=== PATIENT | female | born 1935 | race Caucasian/White ===

== ENCOUNTER 2017-08-02 17:14 | Inpatient (IN) | payer OTHER ==
[~2017-08-02] VITALS: Ht 167.6 cm; Wt 86.6 kg
[2017-08-02] MEDS ORDERED: LORAZEPAM0.5 MG ORAL (17:23)
[2017-08-02] MEDS ORDERED: LOSARTAN-HCTZ1 EAC2 ORAL (17:23)
[2017-08-02] MEDS ORDERED: LEXAPRO10 MG ORAL (17:23)
[2017-08-02] MEDS ORDERED: PRAVASTATIN SOD20 M1 ORAL (17:23)
[2017-08-02] MEDS ORDERED: VITAMIN D250000 UNI1 ORAL (17:23)
[2017-08-02] MEDS ORDERED: LEVOTHYROXINE50 MCG ORAL (17:23)
--- NOTE | 2017-08-02 17:32 | Emergency Room Report ---
History of Present Illness General Chief Complaint: Syncope Source: Patient, Medical Record Present Illness HPI 81-year-old female brought in from urgent care Center by EMS for suspected multiple syncope episodes hpi limited as patient has history of dementia Patient unsure why she is here States she feels fine She is aware that she passed out a couple times, denies any resulting trauma She is unsure if this is happening previously She doesn't know her medical problems however paperwork indicates history of high blood pressure Currently asymptomatic Allergies: Coded Allergies: LIDOCAINE (Verified Allergy, Unknown, 08/02/17) Patient History Past Medical History: HTN Past Surgical History: unable to obtain Pertinent Family History: unable to obtain Social History: Denies: smoking, alcohol use, drug use Now: No Immunizations: UTD Reviewed Nursing Documentation: PMH: Agreed; PSxH: Agreed Nursing Documentation-PMH Past Medical History: No History, Except For Hx Hypertension: Yes Hx Diabetes: Yes Review of Systems All Other Systems: negative except mentioned in HPI Physical Exam Vital Signs Date Time Temp Pulse Resp B/P (MAP) Pulse Ox O2 Delivery O2 Flow Rate FiO2 08/02/17 17:10 97.4 70 16 101/59 97 Room Air 97.3 Sp02 EP Interpretation: reviewed, normal General Appearance: normal inspection, well appearing, no apparent distress, alert, GCS 15, non-toxic Head: normocephalic, atraumatic Eyes: bilateral eye PERRL, bilateral eye EOMI ENT: normal ENT inspection, hearing grossly normal, normal pharynx, no angioedema, normal voice, TMs + canals normal, uvula midline, moist mucus membranes Neck: normal inspection, full range of motion, supple, thyroid normal, no meningismus, no bony tend Respiratory: normal inspection, lungs clear, normal breath sounds, no rhonchi, no respiratory distress, no retraction, no accessory muscle use, no wheezing, speaking full sentences Cardiovascular #1: regular rate, rhythm, no edema, no JVD, normal capillary refill Gastrointestinal: normal inspection, normal bowel sounds, non tender, soft, no mass, no peritonitis, non-distended, no guarding, no hernia, no pulsatile mass Genitourinary: no CVA tenderness Musculoskeletal: normal inspection, back normal, normal range of motion, no calf tenderness, pelvis stable, Dana's Sign negative Neurologic: normal inspection, alert, responsive, auto headlight mechanic III-XII nml as tested, motor strength/tone normal, cerebellar normal, normal gait, speech normal, other - A&OX2 Psychiatric: normal inspection, judgement/insight normal, mood/affect normal, no suicidal/homicidal ideation, no delusions Skin: normal inspection, normal color, no rash Lymphatic: normal inspection, no adenopathy Medical Decision Making Diagnostic Impression: Primary Impression: Syncope Qualified Codes: R55 - Syncope and collapse ER Course VSS, afebrile Alleged multiple episodes of syncope Unlikely PE given not tachycardic, not tachypnic, no S1Q3T3 or right heart strain on ECG, troponin WNL Labs: No acute abnormality Mild leuks, likely reactionary from syncopal episode, stress No cough or signs of PNA on CXR Abd soft, NT so unlikely acute bacterial infection Will need admission overnight for cardiac specialist, tele and serial trop Endorsed to panel, Dr Mabry Tele bed 645pm EKG Diagnostic Results Rate: normal Rhythm: NSR ST Segments: no acute changes ASA given to the pt in ED: No Rhythm Strip Diag. Results EP Interpretation: yes Rate: 76 Rhythm: NSR, no PVC's, no ectopy Chest X-Ray Diagnostic Results Chest X-Ray Diagnostic Results : Chest X-Ray Ordered: Yes # of Views/Limited/Complete: 1 View Indication: Other - Syncope EP Interpretation: Yes Interpretation: no consolidation, no effusion, no pneumothorax, no acute cardiopulmonary disease Impression: No acute disease Electronically Signed by: Dr Marv Mast MD Last Vital Signs Date Time Temp Pulse Resp B/P (MAP) Pulse Ox O2 Delivery O2 Flow Rate FiO2 08/02/17 17:10 97.4 70 16 101/59 97 Room Air 97.3 Status: improved Disposition: ADMITTED INPATIENT Condition: Serious MARV MAST M.D. Aug 02, 2017 17:32
[2017-08-02 18:00] VITALS: BP 138/100
[2017-08-02 18:20] LABS: BASOPHILS % (AUTO) 0.9 % (0.0-2.0); EOSINOPHILS % (AUTO) 1.4 % (0.0-3.0); HEMOGLOBIN 13.4 G/DL (12.0-16.0); LYMPHOCYTES % (AUTO) 14.2 % (20.0-45.0); MEAN CORPUSCULAR VOLUME 87 FL (80-99); MONOCYTES % (AUTO) 6.1 % (1.0-10.0); NEUTROPHILS % (AUTO) 77.3 % (45.0-75.0); PLATELET COUNT 211 K/UL (150-450); RED BLOOD COUNT 4.59 M/UL (4.20-5.40); RED CELL DISTRIBUTION WIDTH 13.9 % (11.6-14.8); WHITE BLOOD COUNT 12.3 K/UL (4.8-10.8)
[2017-08-02 18:25] LABS: ANION GAP 8 mmol/L (5-15); BLOOD UREA NITROGEN 18 mg/dL (7-18); CALCIUM 9.6 MG/DL (8.5-10.1); CARBON DIOXIDE 29 MMOL/L (21-32); CHLORIDE 99 MMOL/L (98-107); CREATININE 1.1 MG/DL (0.55-1.30); POTASSIUM 3.9 MMOL/L (3.5-5.1); SODIUM 136 MMOL/L (136-145)
[2017-08-02 18:39] LABS: ALANINE AMINOTRANSFERASE 19 U/L (12-78); ALBUMIN/GLOBULIN RATIO 0.6 (1.0-2.7); ALKALINE PHOSPHATASE 143 U/L (46-116); ASPARTATE AMINO TRANSFERASE 16 U/L (15-37); BILIRUBIN,TOTAL 0.7 MG/DL (0.2-1.0); CKMB < 0.5 NG/ML (0.0-3.6); CREATINE KINASE 77 U/L (26-308)
[2017-08-02 20:35] VITALS: BP 146/82
[2017-08-02] MEDS ORDERED: Acetaminophen 500mg (ES) tab ORAL PRN (21:30)
[2017-08-03] VITALS: BP 137/79
--- NOTE | 2017-08-03 00:45 | History and Physical Report ---
DATE OF ADMISSION: 08/02/2017 NOTE: VERY POOR AUDIO HISTORY OF PRESENT ILLNESS: The patient comes in with multiple syncopal episodes. The patient is seen as an unreliable historian. . No shortness of breath. Denies cough. The patient . The patient denies any chest . No fevers or chills. Denies shortness of breath. No cough. PAST MEDICAL HISTORY: Dementia and hypertension. ALLERGIES: To lidocaine. SOCIAL HISTORY: Denies smoking, alcohol, or illicit drugs. REVIEW OF SYSTEMS: She is a poor historian, cannot rely on her history. . No fevers or chills. Denies shortness of breath. No cough. PHYSICAL EXAMINATION: VITAL SIGNS: Temperature 97.4, pulse is 70, and blood pressure 101/59. HEENT: PERRLA. NECK: Supple. No lymphadenopathy. CHEST: Clear to auscultation. GASTROINTESTINAL: Soft, nontender, and nondistended. EXTREMITIES: A 1+ edema. NEUROLOGIC: Reflexes equal on both sides. Oriented to name only. LABORATORY DATA: WBC of 12.3, hemoglobin of 10.4, and platelets of 211. Sodium 137, potassium 3.9, BUN of 18, and creatinine 1.1, and glucose 144. normal. ASSESSMENT AND PLAN: 1. Syncopal episode. 2. History of hypertension and . I have asked Dr. West, Dr. Pulido, and Dr. Bustillo to see the patient for the above-mentioned diagnoses and treatment. Becky Celestin M.D. DR: QUINCY JOB#: [id number] CC:
[2017-08-03 03:45] VITALS: BP 154/94
[2017-08-03 08:00] VITALS: BP 134/53
--- NOTE | 2017-08-03 08:36 | Diagnostic Imaging Report ---
Indication: Shortness of breath Technique: One view of the chest Comparison: none Findings: Body habitus limits evaluation. There is a large retrocardiac hiatal hernia. The heart is upper limits of normal in size. Lungs and pleural spaces are clear. Impression: No definite acute process Hiatal hernia
[2017-08-03] MEDS: Hyzaar 12.5mg/50mg tab ORAL SCH (09:00)
[2017-08-03 11:41] VITALS: BP 146/75
--- NOTE | 2017-08-03 13:10 | Cardiac Electrophysiology PN ---
Subjective Subjective Cardiology dictated [id number] Objective Last 24 Hour Vital Signs Date Time Temp Pulse Resp B/P (MAP) Pulse Ox O2 Delivery O2 Flow Rate FiO2 08/03/17 12:00 72 08/03/17 11:41 97.9 71 18 146/75 95 Room Air 97.9 08/03/17 11:10 83 08/03/17 11:05 71 08/03/17 11:00 71 08/03/17 09:00 134/53 08/03/17 08:00 80 08/03/17 08:00 98.2 81 18 134/53 95 98.2 08/03/17 04:00 69 08/03/17 03:45 97.5 67 20 154/94 95 97.5 08/03/17 00:00 68 08/03/17 00:00 97.5 79 20 137/79 97 97.5 08/02/17 20:43 97.4 77 19 138/100 100 Room Air 97.3 08/02/17 20:35 97.0 79 20 146/82 97 97.0 08/02/17 18:00 77 19 138/100 100 Room Air 08/02/17 17:10 97.4 70 16 101/59 97 Room Air 97.3 Intake and Output 08/02/17 08/03/17 19:00 07:00 Intake Total 0 ml Balance 0 ml Intake Oral 0 ml # Voids 2 Laboratory Tests Test 08/02/17 17:43 White Blood Count 12.3 K/UL (4.8-10.8) H Red Blood Count 4.59 M/UL (4.20-5.40) Hemoglobin 13.4 G/DL (12.0-16.0) Hematocrit 40.0 % (37.0-47.0) Mean Corpuscular Volume 87 FL (80-99) Mean Corpuscular Hemoglobin 29.2 PG (27.0-31.0) Mean Corpuscular Hemoglobin Concent 33.6 G/DL (32.0-36.0) Red Cell Distribution Width 13.9 % (11.6-14.8) Platelet Count 211 K/UL (150-450) Mean Platelet Volume 6.3 FL (6.5-10.1) L Neutrophils (%) (Auto) 77.3 % (45.0-75.0) H Lymphocytes (%) (Auto) 14.2 % (20.0-45.0) L Monocytes (%) (Auto) 6.1 % (1.0-10.0) Eosinophils (%) (Auto) 1.4 % (0.0-3.0) Basophils (%) (Auto) 0.9 % (0.0-2.0) Sodium Level 136 MMOL/L (136-145) Potassium Level 3.9 MMOL/L (3.5-5.1) Chloride Level 99 MMOL/L (98-107) Carbon Dioxide Level 29 MMOL/L (21-32) Anion Gap 8 mmol/L (5-15) Blood Urea Nitrogen 18 mg/dL (7-18) Creatinine 1.1 MG/DL (0.55-1.30) Estimat Glomerular Filtration Rate mL/min (>60) Glucose Level 144 MG/DL (74-106) H Calcium Level 9.6 MG/DL (8.5-10.1) Total Bilirubin 0.7 MG/DL (0.2-1.0) Aspartate Amino Transf (AST/SGOT) 16 U/L (15-37) Alanine Aminotransferase (ALT/SGPT) 19 U/L (12-78) Alkaline Phosphatase 143 U/L (46-116) H Total Creatine Kinase 77 U/L (26-308) Creatine Kinase MB < 0.5 NG/ML (0.0-3.6) Creatine Kinase MB Relative Index 0.6 Troponin I 0.000 ng/mL (0.000-0.056) Pro-B-Type Natriuretic Peptide 66 pg/mL (0-125) Total Protein 7.7 G/DL (6.4-8.2) Albumin 3.0 G/DL (3.4-5.0) L Globulin 4.7 g/dL Albumin/Globulin Ratio 0.6 (1.0-2.7) L Bam Pulido MD Aug 03, 2017 13:10
--- NOTE | 2017-08-03 15:51 | Cardiology Report ---
APPROVED REPORT EXAM: Two-dimensional and M-mode echocardiogram with Doppler and color Doppler. INDICATION Syncope M-Mode DIMENSIONS IVSd1.5 (0.7-1.1cm)Left Atrium (MM)2.5 (1.6-4.0cm) LVDd4.6 (3.5-5.6cm)Aortic Root2.3 (2.0-3.7cm) PWd1.5 (0.7-1.1cm)Aortic Cusp Exc.1.7 (1.5-2.0cm) IVSs2.1 cm LVDs3.0 (2.5-4.0cm) PWs1.8 cm Technically difficult study due to poor acoustical windows. Normal left ventricular chamber size, systolic function and wall motion to extent visualized. Left ventricular ejection fraction estimated to be 60 %. No evidence of left ventricular hypertrophy . Noevidence of pericardial effusion. All other cardiac chamber sizes are within normal limits. Focal aortic valve sclerosis with adequate cusp excursion. Moderately Thickened mitral valve leaflets with normal excursion. Moderately Mitral annulus and aortic root calcification. pulmonic valve structure not well visualized . Normal tricuspid valve structure. IVC at normal size with physiologic collapse. A color flow and spectral Doppler study was performed and revealed: No aortic regurgitation. Mild mitral regurgitation. Mitral diastolic velocities suggest reduced left ventricular relaxation c/w mild LV diastolic dysfunction (Grade I ). Trace tricuspid regurgitation. Tricuspid systolic velocities suggests peak right ventricular systolic pressure of 18 mmHg,
[2017-08-03 15:53] VITALS: BP 139/81
--- NOTE | 2017-08-03 16:48 | Cardiology Report ---
APPROVED REPORT EKG Measurement Heart [id number] Normal sinus rhythm Normal ECG
--- NOTE | 2017-08-03 19:00 | Consultation ---
DATE OF CONSULTATION: 08/03/2017 CARDIOLOGY CONSULTATION CONSULTING PHYSICIAN: Bam Pulido M.D. REFERRING PHYSICIAN: Becky Celestin M.D. REASON FOR CONSULTATION: Syncope. HISTORY OF PRESENT ILLNESS: The patient is an 81-year-old lady with history of hypertension, who was brought in from urgent care for multiple syncopal episodes. The patient has history of dementia and is unable to provide any detailed information. She, however, states that she passed out couple of times, but denies any trauma. The patient was admitted and a Cardiology consultation was obtained for further evaluation and management. PAST MEDICAL HISTORY: 1. Hypertension. 2. Diabetes. 3. Dementia. FAMILY HISTORY: Noncontributory. REVIEW OF SYSTEMS: Negative other than what was mentioned in the history of present illness. PHYSICAL EXAMINATION: VITAL SIGNS: Show blood pressure of 146/75, pulse 71, respirations 18, and temperature 97.9. HEAD AND NECK: Showed no JVD or carotid bruits. LUNGS: Clear. CARDIOVASCULAR: Shows regular S1 and S2 with no gallop or murmur. ABDOMEN: Soft and nontender. EXTREMITIES: No pitting edema. LABORATORY DATA: Her labs show white count of 4.3, hemoglobin 13.4, hematocrit of 40, and platelet count is 211,000. Sodium is 136, potassium 3.9, BUN of 18, creatinine 1.1, and glucose of 144. Troponin is negative. Her telemetry strip shows sinus rhythm. ASSESSMENT AND PLAN: 1. Recurrent syncopal episodes. No arrhythmia on telemetry so far. We will get an echocardiogram and carotid duplex and check orthostatic vital signs. 2. Hypertension. She is on high Hyzaar 50/12.5 mg daily. 3. Hyperlipidemia. On Pravachol. 4. Hypothyroidism. On Synthroid. Thank you very much, Dr. Celestin, for allowing me to participate in the care of this patient. Please do not hesitate to contact me for any questions regarding my evaluation. Bam Pulido M.D. DR: KATHLEEN JOB#: [id number] CC:
[2017-08-03 20:00] VITALS: BP 120/61
--- NOTE | 2017-08-03 21:21 | General Progress Note ---
Assessment/Plan Problem List: (1) Syncope ICD Codes: R55 - Syncope and collapse SNOMED: [id number] Qualifiers: Qualified Codes: R55 - Syncope and collapse Status: progressing Assessment/Plan cant remember what happened ot to name only obesity syncope reviewed chart and labs Subjective ROS Limited/Unobtainable: Yes Constitutional: Reports: no symptoms Allergies: Coded Allergies: LIDOCAINE (Verified Allergy, Unknown, 08/02/17) Objective Last 24 Hour Vital Signs Date Time Temp Pulse Resp B/P (MAP) Pulse Ox O2 Delivery O2 Flow Rate FiO2 08/03/17 20:00 98.0 82 18 120/61 96 Room Air 98.0 08/03/17 16:00 75 08/03/17 15:53 97.5 73 19 139/81 96 Room Air 97.5 08/03/17 12:00 72 08/03/17 11:41 97.9 71 18 146/75 95 Room Air 97.9 08/03/17 11:10 83 08/03/17 11:05 71 08/03/17 11:00 71 08/03/17 09:00 134/53 08/03/17 08:00 80 08/03/17 08:00 98.2 81 18 134/53 95 98.2 08/03/17 04:00 69 08/03/17 03:45 97.5 67 20 154/94 95 97.5 08/03/17 00:00 68 08/03/17 00:00 97.5 79 20 137/79 97 97.5 Intake and Output 08/02/17 08/03/17 19:00 07:00 Intake Total 0 ml Balance 0 ml Intake Oral 0 ml # Voids 2 Height (Feet): 5 Height (Inches): 6.00 Weight (Pounds): 191 Neck: supple Cardiovascular: normal rate Respiratory/Chest: lungs clear Becky Celestin MD Aug 03, 2017 21:21
--- NOTE | 2017-08-03 21:37 | Consultation ---
Consult Note Consult Note NEUROLOGY CONSULTATION: Full note dictated #[id number] 81 y/o, RH, CF with PH of hypothyroidism, HTN, DM and dementia. She was hospitalized for episodes of LOC. She cannot elaborate on them. ON EXAM: Global cognitive dysfunction. Globally diminished DTR. LABS with WBC 12.3 and BS 144. IMPRESSION: Syncopal episodes in patient with HTN, DM and Dementia. REC: W/U for syncope with labs. Cardiac W/U as per Dr. Pulido Observe If not done in past w/u dementia. Nicki Melendez M.D., M.S.P.H. NICKI MELENDEZ Aug 03, 2017 21:37
--- NOTE | 2017-08-03 23:30 | Consultation ---
DATE OF CONSULTATION: 08/03/2017 NEUROLOGY CONSULTATION CONSULTING PHYSICIAN: Vitaliy Olvera M.D. REQUESTING PHYSICIAN: Becky Celestin M.D. HISTORY: Ms. Erin Vicente is an 81-year-old, right-handed, lady, who has a long history of hypothyroidism, hypertension, diabetes mellitus, and dementia. She was apparently having multiple episodes of loss of consciousness and as a result of that was taken to an urgent care center from where she was brought into the [facility] emergency room. Since she has been in the emergency room, she has had no further episodes of loss of consciousness. She herself is quite demented and cannot remember any details of the episodes of loss of consciousness. She cannot tell me if she had any prodromal symptoms prior to the episodes and can give me no description of the episodes. PAST MEDICAL HISTORY: Significant for hypothyroidism, hypertension, diabetes mellitus, and dementia. FAMILY HISTORY: Unavailable. PERSONAL HISTORY: Home: She lives alone with some caregivers. Work: She is unable to remember what kind work she did. Habits: She denies use of alcohol, tobacco, or illicit drugs. MEDICATIONS: Present medications include pravastatin, Hyzaar, Synthroid and Tylenol. PHYSICAL EXAMINATION: GENERAL: She is a well-developed and well-nourished, pleasant lady, lying in bed, in no acute distress, smelling of urine. VITAL SIGNS: Pulse 82 per minute, blood pressure 120/61 mmHg, respirations 18 per minute, and temperature 98 degrees Fahrenheit. HEAD: Normocephalic and atraumatic. EENT: Examination benign. NECK: No neck rigidity was observed. NEUROLOGIC EXAMINATION: MENTAL STATUS EXAMINATION: She was awake and alert. She was oriented to self only. She had no idea where she was or what the date was. She was able to recall 3/3 words immediately, but could not remember any of them in 1 minute and 3 minutes even on the third trial. She was unable to tell me who the present President was and who prior presidents were. Her mathematical skills were impaired. Her visuospatial function was also impaired. SPEECH: She had no dysarthria. LANGUAGE: She had anomia for low and mid frequency words. CRANIAL NERVE EXAMINATION: II: The visual allen were intact to confrontation testing. III, IV & : The external ocular movements were full and the pupils 3 mm in diameter, equal, round, regular, and reactive to light. V: She had normal facial sensations and the temporales, masseters, and pterygoids functioned normally. VII: She had normal facial expressions and no facial asymmetry. VIII: She was able to hear well bilaterally and had no nystagmus. IX: The palate moved symmetrically on phonation. X: She had no hoarseness of voice. XI: The sternocleidomastoids and trapezii functioned normally. XII: The tongue was in the midline without any fasciculations or atrophy. MOTOR SYSTEM: The tone was normal in all four extremities. Examination of muscle mass revealed no focal wasting. Examination of power revealed grade 5/5 power in all muscle groups tested. SENSORY EXAMINATION: She had intact sensations to pinprick and light touch. Position sense was diminished in the toes bilaterally, but was normal in the fingers bilaterally. COORDINATION: She performed well on [id number] and [id number] testing. Romberg test could not be performed because even with eyes open when she was made to stand with feet together, she was quite unsteady. REFLEXES: Trace+ and bilaterally symmetrical at the biceps, triceps, brachioradialis, and knees, 0 at both ankles. The plantar responses were flexor bilaterally. STANCE: She had a minimally wide-based, but stable stance. GAIT: She walked with a minimally wide-based, but stable gait. DIAGNOSTIC IMPRESSION: 1. Ms. Erin Vicente is an 81-year-old, right-handed, lady, who does have a past history of hypothyroidism, hypertension, diabetes mellitus, and dementia, who was hospitalized for multiple episodes of loss of consciousness, thought to be syncopal episodes. She herself cannot elaborate on them because of her significant cognitive dysfunction. 2. On neurological examination, at this time, she does have problems with orientation, recent and remote memory, visuospatial function, higher cognitive function, and language. She also has globally diminished deep tendon reflexes, decreased position sense in the toes bilaterally, a wide-based stance and a wide-based gait. 3. Laboratory data obtained thus far revealed that her WBC count is elevated to 12,300 and a blood sugar is elevated to 144. 4. The patient's history and neurological examination are most compatible with syncopal episodes in a patient with significant dementia making it impossible to obtain a good history. She also has a prior history of hypothyroidism, hypertension and diabetes mellitus. RECOMMENDATIONS: 1. The patient should be worked up thoroughly for treatable causes of syncope with in addition to the laboratory tests already done, a B12 level, folate level, vitamin D level, RPR, glycohemoglobin, Westergren sedimentation rate, TSH, and serum protein immunoelectrophoresis. 2. Cardiac workup as per Dr. Pulido. 3. If not done in the past, she should be worked up thoroughly for treatable causes of dementia. 4. The patient should be observed with cardiac monitoring and depending on how she fares over the next day or so, further recommendations will be given. Thank you for entrusting me with the care of Ms. Vicente. I shall follow her with you. Vitaliy Olvera M.D., M.S.P.H. DR: FABI JOB#: [id number]
[2017-08-04] VITALS (7 sets, daily range): BP systolic 102–162; BP diastolic 60–89
[2017-08-04] MEDS: Hyzaar 12.5mg/50mg tab ORAL SCH (08:55)
[2017-08-04 11:00] LABS: CHOLESTEROL 370 MG/DL (< 200); HDL CHOLESTEROL 36 MG/DL (40-60); TRIGLYCERIDES 434 MG/DL (30-150)
--- NOTE | 2017-08-04 14:57 | Cardiac Electrophysiology PN ---
Assessment/Plan Assessment/Plan 1. Recurrent syncopal episodes. No arrhythmia on telemetry. Echo EF 60%. Neuro eval in progress 2. Hypertension. On Hyzaar 50/12.5 mg daily. 3. Hyperlipidemia. On Pravachol. 4. Hypothyroidism. On Synthroid. NICOLE RN Subjective Subjective Comfortable in NAD. No events. Objective Last 24 Hour Vital Signs Date Time Temp Pulse Resp B/P (MAP) Pulse Ox O2 Delivery O2 Flow Rate FiO2 08/04/17 12:41 97.7 70 18 139/60 95 Room Air 97.7 08/04/17 11:39 72 08/04/17 10:40 68 08/04/17 10:35 68 08/04/17 10:30 79 08/04/17 08:55 132/84 08/04/17 08:54 97.3 78 18 132/84 95 Room Air 97.3 08/04/17 07:47 76 08/04/17 04:00 65 08/04/17 04:00 97.7 63 18 133/64 95 Room Air 97.7 08/04/17 00:53 97.6 73 18 115/69 95 Room Air 97.6 08/04/17 00:00 70 08/03/17 23:10 88 08/03/17 23:05 80 08/03/17 23:00 67 08/03/17 20:00 84 08/03/17 20:00 98.0 82 18 120/61 96 Room Air 98.0 08/03/17 16:00 75 08/03/17 15:53 97.5 73 19 139/81 96 Room Air 97.5 Intake and Output 08/03/17 08/04/17 19:00 07:00 Intake Total 360 ml Balance 360 ml Intake Oral 360 ml # Voids 3 Laboratory Tests Test 08/04/17 09:50 Erythrocyte Sedimentation Rate 53 MM/HR (0-30) H Hemoglobin A1c 5.7 % (4.3-6.0) Troponin I 0.000 ng/mL (0.000-0.056) Pro-B-Type Natriuretic Peptide 17 pg/mL (0-125) Total Protein (PEP) Pending Albumin (PEP) Pending Globulin (PEP) Pending Albumin/Globulin Ratio Pending [id number] Pending Jhouo-2-Uboebusth Pending Beta Globulins Pending Beta Gamma Globulin Pending PEP Abnormal Protein Bands Pending Protein Electrophoresis Interpret Pending Triglycerides Level 434 MG/DL (30-150) H Cholesterol Level 370 MG/DL (< 200) H LDL Cholesterol 158 mg/dL (<100) H HDL Cholesterol 36 MG/DL (40-60) L Cholesterol/HDL Ratio 10.3 (3.3-4.4) H Vitamin B12 Level 295 PG/ML (193-986) Vitamin D 25-Hydroxy Pending 25-Hydroxy Vitamin D2 Pending 25-Hydroxy Vitamin D3 Pending Folate 10.5 NG/ML (8.6-58.9) Thyroid Stimulating Hormone (TSH) 1.317 uiU/mL (0.358-3.740) Rapid Plasma Reagin Pending Objective HEAD AND NECK: No JVD or carotid bruits. LUNGS: Clear. CARDIOVASCULAR: Regular S1 and S2 with no gallop or murmur. ABDOMEN: Soft and nontender. EXTREMITIES: No pitting edema. Bam Pulido MD Aug 04, 2017 14:57
[2017-08-04 16:55] LABS: APPEARANCE,URINE CLEAR; BILIRUBIN, URINE NEGATIVE (NEGATIVE); GLUCOSE, URINE (UA) NEGATIVE (NEGATIVE); KETONES,URINE NEGATIVE (NEGATIVE); LEUKOCYTE ESTERASE ,URINE 1+ (NEGATIVE); NITRITE,URINE POSITIVE (NEGATIVE); PH,URINE 5 (4.5-8.0); PROTEIN,URINE NEGATIVE (NEGATIVE); UROBILINOGEN,URINE NORMAL MG/DL (0.0-1.0)
[2017-08-04 16:56] LABS: COLOR,URINE YELLOW
[2017-08-04] MEDS ORDERED: Acetaminophen 500mg (ES) tab ORAL PRN (17:30)
--- NOTE | 2017-08-04 20:35 | Neurology Progress Note ---
Interim History Interim History Interim History Ms. Vicente feels well. Her sister is visiting her. She continues to have severe cognitive dysfunction. She continues to have no memory. She denies any new problems. Review of Systems Neuro Review of Systems Benign. Objective Physical Exam Last Vital Signs Date Time Temp Pulse Resp B/P (MAP) Pulse Ox O2 Delivery O2 Flow Rate FiO2 08/04/17 17:20 98.3 70 17 162/79 98 Room Air 98.3 Laboratory Tests Test 08/04/17 09:50 08/04/17 16:00 Erythrocyte Sedimentation Rate 53 MM/HR (0-30) H Hemoglobin A1c 5.7 % (4.3-6.0) Troponin I 0.000 ng/mL (0.000-0.056) Pro-B-Type Natriuretic Peptide 17 pg/mL (0-125) Total Protein (PEP) Pending Albumin (PEP) Pending Globulin (PEP) Pending Albumin/Globulin Ratio Pending [id number] Pending [id number] Pending Beta Globulins Pending Beta Gamma Globulin Pending PEP Abnormal Protein Bands Pending Protein Electrophoresis Interpret Pending Triglycerides Level 434 MG/DL (30-150) H Cholesterol Level 370 MG/DL (< 200) H LDL Cholesterol 158 mg/dL (<100) H HDL Cholesterol 36 MG/DL (40-60) L Cholesterol/HDL Ratio 10.3 (3.3-4.4) H Vitamin B12 Level 295 PG/ML (193-986) Vitamin D 25-Hydroxy Pending 25-Hydroxy Vitamin D2 Pending 25-Hydroxy Vitamin D3 Pending Folate 10.5 NG/ML (8.6-58.9) Thyroid Stimulating Hormone (TSH) 1.317 uiU/mL (0.358-3.740) Rapid Plasma Reagin Pending Urine Color Yellow Urine Appearance Clear Urine pH 5 (4.5-8.0) Urine Specific [place] 1.020 (1.005-1.035) Urine Protein Negative (NEGATIVE) Urine Glucose (UA) Negative (NEGATIVE) Urine Ketones Negative (NEGATIVE) Urine Occult Blood 3+ (NEGATIVE) H Urine Nitrite Positive (NEGATIVE) H Urine Bilirubin Negative (NEGATIVE) Urine Urobilinogen Normal MG/DL (0.0-1.0) Urine Leukocyte Esterase 1+ (NEGATIVE) H Urine RBC 0-2 /HPF (0 - 2) Urine WBC 2-4 /HPF (0 - 2) Urine Squamous Epithelial Cells Occasional /LPF Urine Bacteria Many /HPF (NONE) H Neurologic Exam Objective PHYSICAL EXAMINATION: GENERAL: She is a well-developed and well-nourished, pleasant lady, sitting up in a chair, in no acute distress, smelling of urine. HEAD: Normocephalic and atraumatic. EENT: Examination benign. NECK: No neck rigidity was observed. NEUROLOGIC EXAMINATION: MENTAL STATUS EXAMINATION: She was awake and alert. She was oriented to self only. She had no idea where she was or what the date was. She was able to recall 3/3 words immediately, but could not remember any of them in 1 minute and 3 minutes. She was unable to tell me who the present President was and who prior presidents were. Her mathematical skills were impaired. Her visuospatial function was also impaired. SPEECH: She had no dysarthria. LANGUAGE: She had anomia for low and mid frequency words. CRANIAL NERVE EXAMINATION: II: The visual allen were intact to confrontation testing. III, IV & : The external ocular movements were full and the pupils 3 mm in diameter, equal, round, regular, and reactive to light. V: She had normal facial sensations and the temporales, masseters, and pterygoids functioned normally. VII: She had normal facial expressions and no facial asymmetry. VIII: She was able to hear well bilaterally and had no nystagmus. IX: The palate moved symmetrically on phonation. X: She had no hoarseness of voice. XI: The sternocleidomastoids and trapezii functioned normally. XII: The tongue was in the midline without any fasciculations or atrophy. MOTOR SYSTEM: The tone was normal in all four extremities. Examination of muscle mass revealed no focal wasting. Examination of power revealed grade 5/5 power in all muscle groups tested. SENSORY EXAMINATION: She had intact sensations to pinprick and light touch. Position sense was diminished in the toes bilaterally, but was normal in the fingers bilaterally. COORDINATION: She performed well on qurlek-uc-ebor and sotl-nc-zksc testing. Romberg test could not be performed because even with eyes open when she was made to stand with feet together, she was quite unsteady. REFLEXES: Trace+ and bilaterally symmetrical at the biceps, triceps, brachioradialis, and knees, 0 at both ankles. The plantar responses were flexor bilaterally. STANCE: She had a minimally wide-based, but stable stance. GAIT: She walked with a minimally wide-based, but stable gait. Impression/Recommendations Diagnostic Impression 1. Ms. Erin Vicente is an 81-year-old, right-handed, lady, who does have a past history of hypothyroidism, hypertension, diabetes mellitus, and dementia, who was hospitalized for multiple episodes of loss of consciousness, thought to be syncopal episodes. She herself cannot elaborate on them because of her significant cognitive dysfunction. 2. She feels well. Her sister is visiting her. She continues to have severe cognitive dysfunction. She continues to have no memory. She denies any new problems. 3. On neurological examination, at this time, she does have problems with orientation, recent and remote memory, visuospatial function, higher cognitive function, and language. She also has globally diminished deep tendon reflexes, decreased position sense in the toes bilaterally, a wide-based stance and a wide-based gait. 4. Laboratory data obtained thus far revealed that her WBC count is elevated to 12,300 and a blood sugar is elevated to 144. In addition she is Vitamin B12 deficient with a level of 295. She also has a mild UTI. 5. The patient's history and neurological examination are most compatible with recent syncopal episodes. 6. She has also had a dementia for a few years now and the problem has worsened significantly as per her sister. Her dementia is most probably due to Alzheimer' s Disease. Recommendations 1. Await laboratory tests for dementia work up. 2. Cardiac workup as per Dr. Pulido. 3. Vitamin B12 - 1000 mcg SC daily x 3 and then monthly. Nicki Melendez M.D., M.S.P.Azeb. NICKI MELENDEZ Aug 04, 2017 20:35
[2017-08-04] MEDS: Vitamin B12 1000mcg/ml Inj SUBQ SCH (21:33)
--- NOTE | 2017-08-04 22:00 | General Progress Note ---
Assessment/Plan Problem List: (1) Syncope ICD Codes: R55 - Syncope and collapse SNOMED: [id number] Qualifiers: Qualified Codes: R55 - Syncope and collapse Status: progressing Assessment/Plan dementia no arrythmia no pain no fever syncope reviewed chart and labs Subjective ROS Limited/Unobtainable: Yes Constitutional: Reports: no symptoms Allergies: Coded Allergies: LIDOCAINE (Verified Allergy, Unknown, 08/02/17) Objective Last 24 Hour Vital Signs Date Time Temp Pulse Resp B/P (MAP) Pulse Ox O2 Delivery O2 Flow Rate FiO2 08/04/17 20:00 97.7 73 15 102/74 93 97.7 08/04/17 20:00 96.3 72 14 147/89 99 96.3 08/04/17 17:20 98.3 70 17 162/79 98 Room Air 98.3 08/04/17 16:57 97.7 85 18 125/73 95 Room Air 97.7 08/04/17 12:41 97.7 70 18 139/60 95 Room Air 97.7 08/04/17 11:39 72 08/04/17 10:40 68 08/04/17 10:35 68 08/04/17 10:30 79 08/04/17 08:55 132/84 08/04/17 08:54 97.3 78 18 132/84 95 Room Air 97.3 08/04/17 07:47 76 08/04/17 04:00 65 08/04/17 04:00 97.7 63 18 133/64 95 Room Air 97.7 08/04/17 00:53 97.6 73 18 115/69 95 Room Air 97.6 08/04/17 00:00 70 08/03/17 23:10 88 08/03/17 23:05 80 08/03/17 23:00 67 Intake and Output 08/03/17 08/04/17 19:00 07:00 Intake Total 360 ml Balance 360 ml Intake Oral 360 ml # Voids 3 Laboratory Tests 08/04/17 09:50: Erythrocyte Sedimentation Rate 53H, Hemoglobin A1c 5.7, Troponin I 0.000, Pro-B- Type Natriuretic Peptide 17, Total Protein (PEP) [Pending], Albumin (PEP) [ Pending], Globulin (PEP) [Pending], Albumin/Globulin Ratio [Pending], Alpha-1- Globulins [Pending], Ykhrn-8-Ioxmwydty [Pending], Beta Globulins [Pending], Beta Gamma Globulin [Pending], PEP Abnormal Protein Bands [Pending], Protein Electrophoresis Interpret [Pending], Triglycerides Level 434H, Cholesterol Level 370H, LDL Cholesterol 158H, HDL Cholesterol 36L, Cholesterol/HDL Ratio 10.3H, Vitamin B12 Level 295, Vitamin D 25-Hydroxy [Pending], 25-Hydroxy Vitamin D2 [Pending], 25-Hydroxy Vitamin D3 [Pending], Folate 10.5, Thyroid Stimulating Hormone (TSH) 1.317, Rapid Plasma Reagin [Pending] 08/04/17 16:00: Urine Color Yellow, Urine Appearance Clear, Urine pH 5, Urine Specific [place] 1.020, Urine Protein Negative, Urine Glucose (UA) Negative, Urine Ketones Negative, Urine Occult Blood 3+H, Urine Nitrite PositiveH, Urine Bilirubin Negative, Urine Urobilinogen Normal, Urine Leukocyte Esterase 1+H, Urine RBC 0-2 , Urine WBC 2-4, Urine Squamous Epithelial Cells Occasional, Urine Bacteria ManyH Height (Feet): 5 Height (Inches): 6.00 Weight (Pounds): 191 General Appearance: confused Cardiovascular: normal rate Respiratory/Chest: lungs clear Abdomen: soft Becky Celestin MD Aug 04, 2017 22:00
[2017-08-05] VITALS (7 sets, daily range): BP systolic 112–134; BP diastolic 48–95
--- NOTE | 2017-08-05 00:04 | Diagnostic Imaging Report ---
APPROVED REPORT CPT Code: 32525 Vascular Symptoms Syncope CAROTID (BILATERAL) - Imaging reveals no significant plaque within the right and left extracranial carotid arteries. The Doppler spectral flow analysis is within normal limits throughout the extracranial carotid arteries bilaterally. VERTEBRAL- The vertebral arteries are within normal limits.
[2017-08-05] MEDS: Hyzaar 12.5mg/50mg tab ORAL SCH (09:22)
--- NOTE | 2017-08-05 11:01 | Physician Query ---
--------- THIS DOCUMENT IS A PERMANENT PART OF THE MEDICAL RECORD --------- PLEASE COMPLETE THE DOCUMENT BEFORE SIGNING Dear WILLIS Lucio Date: 08/05/17 Migration Agent/CDS Name: Fabrice Orozco Migration Agent / CDS Phone #[phone] Exercise your independent professional judgment when responding to query. Question asked do not imply a particular answer is desired/expected Clinical Documentation States: "Syncope" documented in: H & P (08/04/17) "Syncopal episode" Cardiology Progress Note: Dr. Ozuna (08/04/17)= Recurrent syncopal episodes. Hyperlipidemia. Hypothyroidism.No arrhythmia on telemetry. Echo EF 60%. Neurology Progress Note: (08/04/17)= " Ms. Erin Vicente is an 81-year- old, right-handed, lady, who does have a past history of hypothyroidism, hypertension, diabetes mellitus, and dementia, who was hospitalized for multiple episodes of loss of consciousness, thought to be syncopal episodes." Temperature 97.4, pulse is 70, and blood pressure 101/59. Please specify the cause: [] Autonomic Imbalance [] Orthostatic Hypotension [] Psychogenic [] Shock [] Dehydration [] Dialysis Disequilibrium Syndrome [] Heat [] Other: [] Unable to determine Condition Present on Admission: [] Yes [] No [] Clinically Undeterminable Please also document in your Progress Notes and/or Discharge Summary and indicate if the condition was present on admission. Dr. WILLIS DAY Date/Time [facility]
--- NOTE | 2017-08-05 12:22 | Neurology Progress Note ---
Interim History Interim History Interim History Ms. Vicente feels well. She says she slept well last night. She has a good appetite and enjoyed her lunch today. She continues to have severe cognitive dysfunction. She continues to have no memory. She has had no further episodes of loss of consciousness. She denies any new problems. Review of Systems Neuro Review of Systems Benign. Objective Physical Exam Last Vital Signs Date Time Temp Pulse Resp B/P (MAP) Pulse Ox O2 Delivery O2 Flow Rate FiO2 08/05/17 09:22 134/68 08/05/17 08:00 80 08/05/17 08:00 97.4 20 94 Room Air 97.4 Laboratory Tests Test 08/04/17 16:00 Urine Color Yellow Urine Appearance Clear Urine pH 5 (4.5-8.0) Urine Specific [place] 1.020 (1.005-1.035) Urine Protein Negative (NEGATIVE) Urine Glucose (UA) Negative (NEGATIVE) Urine Ketones Negative (NEGATIVE) Urine Occult Blood 3+ (NEGATIVE) H Urine Nitrite Positive (NEGATIVE) H Urine Bilirubin Negative (NEGATIVE) Urine Urobilinogen Normal MG/DL (0.0-1.0) Urine Leukocyte Esterase 1+ (NEGATIVE) H Urine RBC 0-2 /HPF (0 - 2) Urine WBC 2-4 /HPF (0 - 2) Urine Squamous Epithelial Cells Occasional /LPF Urine Bacteria Many /HPF (NONE) H Neurologic Exam Objective PHYSICAL EXAMINATION: GENERAL: She is a well-developed, well-nourished, pleasant lady, sitting up in bed, in no acute distress, enjoying her lunch. HEAD: Normocephalic and atraumatic. EENT: Examination benign. NECK: No neck rigidity was observed. NEUROLOGIC EXAMINATION: MENTAL STATUS EXAMINATION: She was awake and alert. She was oriented to self only. She had no idea where she was or what the date was. She was able to recall 3/3 words immediately, but could not remember any of them in 1 minute and 3 minutes. She knew that Karthik was president but was unable to tell me who prior presidents were. Her mathematical skills were impaired. Her visuospatial function was also impaired. SPEECH: She had no dysarthria. LANGUAGE: She had anomia for low and mid frequency words. CRANIAL NERVE EXAMINATION: II: The visual allen were intact to confrontation testing. III, IV & : The external ocular movements were full and the pupils 3 mm in diameter, equal, round, regular, and reactive to light. V: She had normal facial sensations and the temporales, masseters, and pterygoids functioned normally. VII: She had normal facial expressions and no facial asymmetry. VIII: She was able to hear well bilaterally and had no nystagmus. IX: The palate moved symmetrically on phonation. X: She had no hoarseness of voice. XI: The sternocleidomastoids and trapezii functioned normally. XII: The tongue was in the midline without any fasciculations or atrophy. MOTOR SYSTEM: The tone was normal in all four extremities. Examination of muscle mass revealed no focal wasting. Examination of power revealed grade 5/5 power in all muscle groups tested. SENSORY EXAMINATION: She had intact sensations to pinprick and light touch. Position sense was diminished in the toes bilaterally, but was normal in the fingers bilaterally. COORDINATION: She performed well on uuuxee-bf-vocp and udou-iv-wcql testing. Romberg test could not be performed because even with eyes open when she was made to stand with feet together, she was quite unsteady. REFLEXES: Trace+ and bilaterally symmetrical at the biceps, triceps, brachioradialis, and knees, 0 at both ankles. The plantar responses were flexor bilaterally. STANCE: She had a minimally wide-based, but stable stance. GAIT: She walked with a minimally wide-based, but stable gait. Impression/Recommendations Diagnostic Impression 1. Ms. Erin Vicente is an 81-year-old, right-handed, lady, who does have a past history of hypothyroidism, hypertension, diabetes mellitus, and dementia, who was hospitalized for multiple episodes of loss of consciousness, thought to be syncopal episodes. She herself cannot elaborate on them because of her significant cognitive dysfunction. 2. She feels well. She says she slept well last night. She has a good appetite and enjoyed her lunch today. She continues to have severe cognitive dysfunction. She continues to have no memory. She has had no further episodes of loss of consciousness. She denies any new problems. 3. On neurological examination, at this time, she does have problems with orientation, recent and remote memory, visuospatial function, higher cognitive function, and language. She also has globally diminished deep tendon reflexes, decreased position sense in the toes bilaterally, a wide-based stance and a wide -based gait. 4. Laboratory data obtained thus far revealed that her WBC count is elevated to 12,300 and a blood sugar is elevated to 144. In addition she is Vitamin B12 deficient with a level of 295. She also has a mild UTI. 5. The patient's history and neurological examination are most compatible with recent syncopal episodes. 6. She has also had a dementia for a few years now and the problem has worsened significantly as per her sister. Her dementia is most probably due to Alzheimer' s Disease. Recommendations 1. Await all laboratory tests for dementia work up. 2. Cardiac workup as per Dr. Pulido. 3. Vitamin B12 - 1000 mcg SC daily x 3 and then monthly. 4. Keep physically and cognitively active. Nicki Olvera M.D., M.S.P.NICKI HILLS Aug 05, 2017 12:22
--- NOTE | 2017-08-05 13:40 | Consultation ---
History of Present Illness General Date patient seen: Aug 04, 2017 Chief Complaint: Syncope Present Illness HPI 81-year-old lady with history of hypertension, who was brought in from urgent care for multiple syncopal episodes. The patient has history of dementia and is unable to provide any meaningful information. the pt has impairment of memory, concentration and attention. the pt has poor insight. Allergies: Coded Allergies: LIDOCAINE (Verified Allergy, Unknown, 08/02/17) Medication History Scheduled Ergocalciferol (Vitamin D2)* (Vitamin D*), 50,000 UNIT ORAL ONCE A WEEK, ( Reported) Levothyroxine Sodium* (Levothyroxine Sodium*), 50 MCG ORAL DAILY, (Reported) Losartan/Hydrochlorothiazide (Losartan-Hctz 50-12.5 Mg Tab), 1 TAB ORAL DAILY, ( Reported) Pravastatin Sod* (Pravastatin Sod*), 20 MG ORAL BEDTIME, (Reported) Discontinued Medications Escitalopram Oxalate* (Lexapro*), 10 MG ORAL DAILY, (Reported) Discontinued Reason: Pt stopped taking med Lorazepam* (Lorazepam*), 0.5 MG ORAL THREE TIMES A DAY, (Reported) Discontinued Reason: Pt stopped taking med Patient History Limited by: medical condition History Provided By: Patient, Medical Record, PMD Healthcare decision maker Sister Amy Naqvi Resuscitation status Do Not Resuscitate Advanced Directive on File Sister Amy Naqvi promised to bring 08/03 Past Medical/Surgical History Past Medical/Surgical History: (1) Syncope Review of Systems Psychiatric: Reports: prior hx, anxiety, depressed feelings, emotional problems Physical Exam General Appearance: no apparent distress, alert, confused, agitated Last 24 Hour Vital Signs Date Time Temp Pulse Resp B/P (MAP) Pulse Ox O2 Delivery O2 Flow Rate FiO2 08/05/17 12:00 97.6 96 20 129/80 99 Room Air 97.6 08/05/17 09:22 134/68 08/05/17 08:00 80 08/05/17 08:00 97.4 63 20 131/64 94 Room Air 97.4 08/05/17 04:00 97.2 63 15 134/68 95 97.2 08/05/17 00:00 96.8 64 15 124/65 95 96.8 08/04/17 20:10 74 08/04/17 20:05 72 08/04/17 20:00 96.3 72 14 147/89 99 96.3 08/04/17 20:00 77 08/04/17 17:20 98.3 70 17 162/79 98 Room Air 98.3 08/04/17 16:57 97.7 85 18 125/73 95 Room Air 97.7 Intake and Output 08/04/17 08/05/17 19:00 07:00 Intake Total 0 ml 360 ml Balance 0 ml 360 ml Intake Oral 0 ml 360 ml # Voids 2 Laboratory Tests Test 08/04/17 16:00 Urine Color Yellow Urine Appearance Clear Urine pH 5 (4.5-8.0) Urine Specific [place] 1.020 (1.005-1.035) Urine Protein Negative (NEGATIVE) Urine Glucose (UA) Negative (NEGATIVE) Urine Ketones Negative (NEGATIVE) Urine Occult Blood 3+ (NEGATIVE) H Urine Nitrite Positive (NEGATIVE) H Urine Bilirubin Negative (NEGATIVE) Urine Urobilinogen Normal MG/DL (0.0-1.0) Urine Leukocyte Esterase 1+ (NEGATIVE) H Urine RBC 0-2 /HPF (0 - 2) Urine WBC 2-4 /HPF (0 - 2) Urine Squamous Epithelial Cells Occasional /LPF Urine Bacteria Many /HPF (NONE) H Microbiology Date/Time Source Procedure Growth Status 08/04/17 16:00 Urine,Clean Catch Urine Culture - Preliminary Gram Negative Bacillus 1 Resulted Height (Feet): 5 Height (Inches): 6.00 Weight (Pounds): 191 Medications Current Medications Medications (Trade) Dose Ordered Sig/Davis Route PRN Reason Start Time Stop Time Status Last Admin Dose Admin Acetaminophen (Tylenol) 500 mg Q4H PRN ORAL Mild Pain/Temp > 100.5 08/04/17 17:30 09/01/17 21:29 Cyanocobalamin (Vitamin B12) 1,000 mcg QHS SUBQ 08/04/17 22:00 08/06/17 21:01 08/04/17 21:33 HCTZ/Losartan Potassium (Hyzaar 50-12.5) 1 tab DAILY ORAL 08/05/17 09:00 09/02/17 08:59 08/05/17 09:22 Levothyroxine Sodium (Synthroid) 50 mcg DAILY@0630 ORAL 08/05/17 06:30 09/02/17 06:29 08/05/17 05:58 Pravastatin Sodium (Pravachol) 20 mg BEDTIME ORAL 08/04/17 21:00 09/02/17 20:59 08/04/17 20:47 Assessment/Plan Assessment/Plan Dementia with behavioral disturbance Anxiety d/o Encephalopathy Jonathon Hawhtorne M.D. Aug 05, 2017 13:40
--- NOTE | 2017-08-05 13:41 | General Progress Note ---
Assessment/Plan Assessment/Plan Dementia with behavioral disturbance Anxiety d/o Encephalopathy Namenda Subjective Neurologic/Psychiatric: Reports: anxiety, emotional problems Allergies: Coded Allergies: LIDOCAINE (Verified Allergy, Unknown, 08/02/17) Objective Last 24 Hour Vital Signs Date Time Temp Pulse Resp B/P (MAP) Pulse Ox O2 Delivery O2 Flow Rate FiO2 08/05/17 12:00 97.6 96 20 129/80 99 Room Air 97.6 08/05/17 09:22 134/68 08/05/17 08:00 80 08/05/17 08:00 97.4 63 20 131/64 94 Room Air 97.4 08/05/17 04:00 97.2 63 15 134/68 95 97.2 08/05/17 00:00 96.8 64 15 124/65 95 96.8 08/04/17 20:10 74 08/04/17 20:05 72 08/04/17 20:00 96.3 72 14 147/89 99 96.3 08/04/17 20:00 77 08/04/17 17:20 98.3 70 17 162/79 98 Room Air 98.3 08/04/17 16:57 97.7 85 18 125/73 95 Room Air 97.7 Intake and Output 08/04/17 08/05/17 19:00 07:00 Intake Total 0 ml 360 ml Balance 0 ml 360 ml Intake Oral 0 ml 360 ml # Voids 2 Laboratory Tests 08/04/17 16:00: Urine Color Yellow, Urine Appearance Clear, Urine pH 5, Urine Specific [place] 1.020, Urine Protein Negative, Urine Glucose (UA) Negative, Urine Ketones Negative, Urine Occult Blood 3+H, Urine Nitrite PositiveH, Urine Bilirubin Negative, Urine Urobilinogen Normal, Urine Leukocyte Esterase 1+H, Urine RBC 0-2 , Urine WBC 2-4, Urine Squamous Epithelial Cells Occasional, Urine Bacteria ManyH Height (Feet): 5 Height (Inches): 6.00 Weight (Pounds): 191 General Appearance: no apparent distress, alert, confused Jonathon Ford M.D. Aug 05, 2017 13:41
--- NOTE | 2017-08-05 16:27 | Cardiac Electrophysiology PN ---
Assessment/Plan Assessment/Plan 1. Syncopal episodes. No arrhythmia on telemetry. Echo EF 60%. 2. Hypertension. On Hyzaar 50/12.5 mg daily. 3. Hyperlipidemia. On Pravachol. 4. Hypothyroidism. On Synthroid. 5. Placement pending DW RN Subjective Subjective Comfortable in NAD. Awaiting placement. No CP. Objective Last 24 Hour Vital Signs Date Time Temp Pulse Resp B/P (MAP) Pulse Ox O2 Delivery O2 Flow Rate FiO2 08/05/17 12:00 97.6 96 20 129/80 99 Room Air 97.6 08/05/17 09:22 134/68 08/05/17 08:00 80 08/05/17 08:00 97.4 63 20 131/64 94 Room Air 97.4 08/05/17 04:00 97.2 63 15 134/68 95 97.2 08/05/17 00:00 96.8 64 15 124/65 95 96.8 08/04/17 20:10 74 08/04/17 20:05 72 08/04/17 20:00 96.3 72 14 147/89 99 96.3 08/04/17 20:00 77 08/04/17 17:20 98.3 70 17 162/79 98 Room Air 98.3 08/04/17 16:57 97.7 85 18 125/73 95 Room Air 97.7 Intake and Output 08/04/17 08/05/17 19:00 07:00 Intake Total 0 ml 360 ml Balance 0 ml 360 ml Intake Oral 0 ml 360 ml # Voids 2 Microbiology Date/Time Source Procedure Growth Status 08/04/17 16:00 Urine,Clean Catch Urine Culture - Preliminary Gram Negative Bacillus 1 Resulted Objective HEAD AND NECK: No JVD LUNGS: Clear. CARDIOVASCULAR: Regular S1 and S2 with no gallop or murmur. ABDOMEN: Soft and nontender. EXTREMITIES: No pitting edema. Bam Pulido MD Aug 05, 2017 16:27
[2017-08-05] MEDS: Vitamin B12 1000mcg/ml Inj SUBQ SCH (20:21)
--- NOTE | 2017-08-05 23:04 | General Progress Note ---
Assessment/Plan Problem List: (1) Syncope ICD Codes: R55 - Syncope and collapse SNOMED: [id number] Qualifiers: Qualified Codes: R55 - Syncope and collapse Status: progressing Assessment/Plan dementia no arrythmia will discuss w dpoa re safe placement afebrile reviewed meds and labs syncope re Subjective ROS Limited/Unobtainable: Yes Constitutional: Reports: no symptoms Allergies: Coded Allergies: LIDOCAINE (Verified Allergy, Unknown, 08/02/17) Objective Last 24 Hour Vital Signs Date Time Temp Pulse Resp B/P (MAP) Pulse Ox O2 Delivery O2 Flow Rate FiO2 08/05/17 19:21 97.7 81 20 121/95 95 Room Air 97.7 08/05/17 16:57 97.6 79 18 112/60 99 Room Air 97.6 08/05/17 12:00 97.6 96 20 129/80 99 Room Air 97.6 08/05/17 09:22 134/68 08/05/17 08:00 80 08/05/17 08:00 97.4 63 20 131/64 94 Room Air 97.4 08/05/17 04:00 97.2 63 15 134/68 95 97.2 08/05/17 00:00 96.8 64 15 124/65 95 96.8 Intake and Output 08/04/17 08/05/17 19:00 07:00 Intake Total 0 ml 360 ml Balance 0 ml 360 ml Intake Oral 0 ml 360 ml # Voids 2 Height (Feet): 5 Height (Inches): 6.00 Weight (Pounds): 191 Neck: supple Cardiovascular: normal rate Abdomen: soft Becky Celestin MD Aug 05, 2017 23:04
[2017-08-06 03:53] VITALS: BP 130/76
[2017-08-06 08:00] VITALS: BP 127/62
[2017-08-06] MEDS: Memantine 10mg tab ORAL SCH (08:51)
[2017-08-06] MEDS: Hyzaar 12.5mg/50mg tab ORAL SCH (08:51)
[2017-08-06 12:00] VITALS: BP 134/65
[2017-08-06] MEDS: ceFAZolin sod 1 GM in D5W 55 ML IVPB SCH (14:46)
[2017-08-06 16:00] VITALS: BP 134/73
--- NOTE | 2017-08-06 16:48 | General Progress Note ---
Assessment/Plan Problem List: (1) Syncope ICD Codes: R55 - Syncope and collapse SNOMED: 192898600 Qualifiers: Qualified Codes: R55 - Syncope and collapse Status: progressing Assessment/Plan dementia no arrythmia e coli uti.consulted id for abx afebrile syncope Subjective ROS Limited/Unobtainable: Yes Allergies: Coded Allergies: LIDOCAINE (Verified Allergy, Unknown, 08/02/17) Objective Last 24 Hour Vital Signs Date Time Temp Pulse Resp B/P (MAP) Pulse Ox O2 Delivery O2 Flow Rate FiO2 08/06/17 16:00 97.5 73 20 134/73 96 97.5 08/06/17 12:00 97.3 66 20 134/65 99 97.3 08/06/17 08:51 127/62 08/06/17 08:00 75 70 78 08/06/17 08:00 97.7 75 19 127/62 96 97.7 08/06/17 04:00 Room Air 08/06/17 03:53 96.4 69 20 130/76 98 Room Air 96.4 08/06/17 00:00 Room Air 08/05/17 23:58 97.2 63 20 118/48 95 Room Air 97.2 08/05/17 20:00 Room Air 08/05/17 19:21 97.7 81 20 121/95 95 Room Air 97.7 08/05/17 16:57 97.6 79 18 112/60 99 Room Air 97.6 Intake and Output 08/05/17 08/06/17 19:00 07:00 Intake Total 260 ml 240 ml Balance 260 ml 240 ml Intake Oral 260 ml 240 ml # Voids 1 4 Height (Feet): 5 Height (Inches): 6.00 Weight (Pounds): 191 General Appearance: confused Neck: supple Cardiovascular: normal rate Respiratory/Chest: lungs clear Abdomen: soft Becky Celestin MD Aug 06, 2017 16:48
--- NOTE | 2017-08-06 19:46 | Neurology Progress Note ---
Interim History Interim History Interim History Ms. Vicente feels well. She is being visited by her sisters in [facility] and [place]. She continues to cognitively impoverished. She continues to have no memory. She has had no further episodes of loss of consciousness. She denies any new problems. Review of Systems Neuro Review of Systems Benign. Objective Physical Exam Last Vital Signs Date Time Temp Pulse Resp B/P (MAP) Pulse Ox O2 Delivery O2 Flow Rate FiO2 08/06/17 16:00 97.5 73 20 134/73 96 97.5 08/06/17 04:00 Room Air Neurologic Exam Objective PHYSICAL EXAMINATION: GENERAL: She is a well-developed, well-nourished, pleasant lady, sitting up in bed, in no acute distress. HEAD: Normocephalic and atraumatic. EENT: Examination benign. NECK: No neck rigidity was observed. NEUROLOGIC EXAMINATION: MENTAL STATUS EXAMINATION: She was awake and alert. She was oriented to self only. She had no idea where she was or what the date was. She was able to recall 3/3 words immediately, but could not remember any of them in 1 minute and 3 minutes. She knew that Karthik was president but was unable to tell me who prior presidents were. Her mathematical skills were impaired. Her visuospatial function was also impaired. SPEECH: She had no dysarthria. LANGUAGE: She had anomia for low and mid frequency words. CRANIAL NERVE EXAMINATION: II: The visual allen were intact to confrontation testing. III, IV & : The external ocular movements were full and the pupils 3 mm in diameter, equal, round, regular, and reactive to light. V: She had normal facial sensations and the temporales, masseters, and pterygoids functioned normally. VII: She had normal facial expressions and no facial asymmetry. VIII: She was able to hear well bilaterally and had no nystagmus. IX: The palate moved symmetrically on phonation. X: She had no hoarseness of voice. XI: The sternocleidomastoids and trapezii functioned normally. XII: The tongue was in the midline without any fasciculations or atrophy. MOTOR SYSTEM: The tone was normal in all four extremities. Examination of muscle mass revealed no focal wasting. Examination of power revealed grade 5/5 power in all muscle groups tested. SENSORY EXAMINATION: She had intact sensations to pinprick and light touch. Position sense was diminished in the toes bilaterally, but was normal in the fingers bilaterally. COORDINATION: She performed well on [id number] and [id number]-ww-[id number] testing. Romberg test could not be performed because even with eyes open when she was made to stand with feet together, she was quite unsteady. REFLEXES: Trace+ and bilaterally symmetrical at the biceps, triceps, brachioradialis, and knees, 0 at both ankles. The plantar responses were flexor bilaterally. STANCE: She had a minimally wide-based, but stable stance. GAIT: She walked with a minimally wide-based, but stable gait. Impression/Recommendations Diagnostic Impression 1. Ms. Erin Vicente is an 81-year-old, right-handed, lady, who does have a past history of hypothyroidism, hypertension, diabetes mellitus, and dementia, who was hospitalized for multiple episodes of loss of consciousness, thought to be syncopal episodes. She herself cannot elaborate on them because of her significant cognitive dysfunction. 2. She feels well. She says she slept well last night. She continues to be cognitively impoverished. She continues to have no memory. She has had no further episodes of loss of consciousness. She denies any new problems. 3. On neurological examination, at this time, she does have problems with orientation, recent and remote memory, visuospatial function, higher cognitive function, and language. She also has globally diminished deep tendon reflexes, decreased position sense in the toes bilaterally, a wide-based stance and a wide -based gait. 4. Laboratory data obtained thus far revealed that her WBC count is elevated to 12,300 and a blood sugar is elevated to 144. In addition she is Vitamin B12 deficient with a level of 295. She also has a mild UTI. 5. The patient's history and neurological examination are most compatible with recent syncopal episodes. 6. She has also had a dementia for a few years now and the problem has worsened significantly as per her sisters. Her dementia is most probably due to Alzheimer 's Disease. Recommendations 1. Await all laboratory tests for dementia work up. 2. Cardiac workup as per Dr. Pulido. 3. Vitamin B12 - 1000 mcg SC daily x 3 and then monthly. 4. Keep physically and cognitively active. Nicki Melendez M.D., MSherineS.PAshley. NICKI MELENDEZ Aug 06, 2017 19:46
[2017-08-06 20:00] VITALS: BP 130/63
[2017-08-06] MEDS: Vitamin B12 1000mcg/ml Inj SUBQ SCH (21:30)
[2017-08-07] VITALS (7 sets, daily range): BP systolic 96–150; BP diastolic 50–83
[2017-08-07] MEDS: ceFAZolin sod 1 GM in D5W 55 ML IVPB SCH ×2 (01:38→13:48)
[2017-08-07] MEDS: Memantine 10mg tab ORAL SCH (08:19)
[2017-08-07] MEDS: Hyzaar 12.5mg/50mg tab ORAL SCH (08:20)
[2017-08-07] MEDS ORDERED: NS 500ML ONE (14:28)
[2017-08-07] MEDS ORDERED: Tubing IV Secondary IV ONE (14:28)
--- NOTE | 2017-08-07 17:08 | Cardiac Electrophysiology PN ---
Assessment/Plan Assessment/Plan 1. Syncopal episodes. No arrhythmia on telemetry. Echo EF 60%. 2. Hypertension. On Hyzaar 50/12.5 mg daily. 3. Hyperlipidemia. On Pravachol. 4. Hypothyroidism. On Synthroid. NICOLE RN Subjective Subjective Comfortable in NAD. RN at bedside. No event Objective Last 24 Hour Vital Signs Date Time Temp Pulse Resp B/P (MAP) Pulse Ox O2 Delivery O2 Flow Rate FiO2 08/07/17 16:27 97.0 65 18 137/73 99 Room Air 97.0 08/07/17 12:11 97.3 63 18 135/68 97 Room Air 97.3 08/07/17 08:20 123/52 08/07/17 08:00 76 08/07/17 08:00 97.9 76 18 123/56 97 Room Air 97.9 08/07/17 04:00 97.8 74 18 136/80 94 97.8 08/07/17 04:00 Room Air 08/07/17 00:44 Room Air 08/07/17 00:00 97.2 67 18 131/71 98 97.2 08/06/17 20:00 Room Air 08/06/17 20:00 97.7 71 19 130/63 97 97.7 Intake and Output 08/06/17 08/07/17 19:00 07:00 Intake Total 600 ml 315 ml Balance 600 ml 315 ml Intake Oral 600 ml 260 ml IV Total 55 ml # Voids 2 3 Objective HEAD AND NECK: No JVD LUNGS: Clear. CARDIOVASCULAR: Regular S1 and S2 with no gallop or murmur. ABDOMEN: Soft and nontender. EXTREMITIES: No pitting edema. Bam Pulido MD Aug 07, 2017 17:08
--- NOTE | 2017-08-07 19:00 | Consultation ---
DATE OF CONSULTATION: 08/07/2017 INFECTIOUS DISEASE CONSULTATION CONSULTING PHYSICIAN: Bruce Jennings M.D. PRIMARY PHYSICIAN: Becky Celestin M.D. REASON FOR CONSULTATION: UTI with Escherichia coli. HISTORY OF PRESENT ILLNESS: This is an 81-year-old white female admitted on 08/02/2017 because of syncopal episode that happened multiple times. Apparently, the patient have altered mental status and loss of consciousness for some time. At the time of admission, leukocytosis. Urine culture came back positive for E. coli. PAST MEDICAL HISTORY: Significant for diabetes mellitus type 2, hypertension, hypothyroidism, dementia. MEDICATIONS: Getting cefazolin, memantine, Hyzaar, levothyroxine, atorvastatin, Tylenol. ALLERGIES: Allergic to lidocaine. SOCIAL HISTORY: Lives at home. She is single. No history of alcohol, drug abuse, or smoking. REVIEW OF SYSTEMS: The patient seems to not be very reliable, but denies any fever, chills, coughing, nausea, vomiting, or urinary symptoms. PHYSICAL EXAMINATION: VITAL SIGNS: Temperature 97.9 degrees, pulse 76, blood pressure 123/53. BMI is 30.8. GENERAL APPEARANCE: No acute distress. Seems to be happy. HEAD AND NECK: [place] conjunctivae. No oral lesion. Had dentures. HEART: Normal rate. LUNGS: Clear. ABDOMEN: Obese, soft, and nontender. EXTREMITIES: Has no edema. NEUROLOGIC: Awake, alert, verbal. No focal weakness. LABORATORY AND DIAGNOSTIC DATA: Sodium 136, potassium 3.9, chloride 99, bicarbonate 29, BUN 18, creatinine 1.1. LFTs are normal except alkaline phosphatase that was 143. WBC 12.3, hemoglobin 13.1, hematocrit 40, platelets 211. ESR is 53. UA showed positive nitrites, leukocyte esterase 1+. The patient had an echocardiogram that showed ejection fraction of 60%. Carotid arteries were in normal limits. Chest x-ray showed no definitive acute process or hiatal hernia. IMPRESSION: 1. Escherichia coli urinary tract infection. 2. Syncope and collapse. 3. Dementia with some behavioral problems. 4. Diabetes mellitus type 2. 5. Hypertension. 6. Hypothyroidism. RECOMMENDATION: We will continue with cefazolin. In hospital at the time of discharge, we will send the patient with p.o. Keflex. At the end of my exam, I thank Dr. Celestin for involving me in the care of this patient. Bruce Jennings M.D. DR: Scooter JOB#: [id number] CC: WEI
--- NOTE | 2017-08-07 19:36 | Neurology Progress Note ---
Interim History Interim History Interim History Ms. Vicente feels confused. She is in a new room and that has made her more confused and disoriented. She continues to cognitively impoverished. She continues to have no memory. She has had no further episodes of loss of consciousness. She denies any new problems. Review of Systems Neuro Review of Systems Benign. Objective Physical Exam Last Vital Signs Date Time Temp Pulse Resp B/P (MAP) Pulse Ox O2 Delivery O2 Flow Rate FiO2 08/07/17 17:40 97.2 75 20 139/83 98 97.2 08/07/17 16:27 Room Air Neurologic Exam Objective PHYSICAL EXAMINATION: GENERAL: She is a well-developed, well-nourished, pleasant lady, sitting up in bed, in no acute distress. HEAD: Normocephalic and atraumatic. EENT: Examination benign. NECK: No neck rigidity was observed. NEUROLOGIC EXAMINATION: MENTAL STATUS EXAMINATION: She was awake and alert. She was oriented to self only. She had no idea where she was or what the date was. She was able to recall 3/3 words immediately, but could not remember any of them in 1 minute and 3 minutes. She knew that Karthik was president but was unable to tell me who prior presidents were. Her mathematical skills were impaired. Her visuospatial function was also impaired. SPEECH: She had no dysarthria. LANGUAGE: She had anomia for low and mid frequency words. CRANIAL NERVE EXAMINATION: II: The visual allen were intact to confrontation testing. III, IV & : The external ocular movements were full and the pupils 3 mm in diameter, equal, round, regular, and reactive to light. V: She had normal facial sensations and the temporales, masseters, and pterygoids functioned normally. VII: She had normal facial expressions and no facial asymmetry. VIII: She was able to hear well bilaterally and had no nystagmus. IX: The palate moved symmetrically on phonation. X: She had no hoarseness of voice. XI: The sternocleidomastoids and trapezii functioned normally. XII: The tongue was in the midline without any fasciculations or atrophy. MOTOR SYSTEM: The tone was normal in all four extremities. Examination of muscle mass revealed no focal wasting. Examination of power revealed grade 5/5 power in all muscle groups tested. SENSORY EXAMINATION: She had intact sensations to pinprick and light touch. Position sense was diminished in the toes bilaterally, but was normal in the fingers bilaterally. COORDINATION: She performed well on aeizjk-gw-fkia and oihs-qc-pksv testing. Romberg test could not be performed because even with eyes open when she was made to stand with feet together, she was quite unsteady. REFLEXES: Trace+ and bilaterally symmetrical at the biceps, triceps, brachioradialis, and knees, 0 at both ankles. The plantar responses were flexor bilaterally. STANCE: She had a minimally wide-based, but stable stance. GAIT: She walked with a minimally wide-based, but stable gait. Impression/Recommendations Diagnostic Impression 1. Ms. Erin Vicente is an 81-year-old, right-handed, lady, who does have a past history of hypothyroidism, hypertension, diabetes mellitus, and dementia, who was hospitalized for multiple episodes of loss of consciousness, thought to be syncopal episodes. She herself cannot elaborate on them because of her significant cognitive dysfunction. 2. She feels confused. She is in a new room and that has made her more confused and disoriented. She continues to cognitively impoverished. She continues to have no memory. She has had no further episodes of loss of consciousness. She denies any new problems. 3. On neurological examination, at this time, she does have severe problems with orientation, recent and remote memory, visuospatial function, higher cognitive function, and language. She also has globally diminished deep tendon reflexes, decreased position sense in the toes bilaterally, a wide-based stance and a wide-based gait. 4. Laboratory data obtained thus far revealed that her WBC count is elevated to 12,300 and a blood sugar is elevated to 144. In addition she is Vitamin B12 deficient with a level of 295. She also has a mild UTI. 5. The patient's history and neurological examination are most compatible with recent syncopal episodes. 6. She has also had a dementia for a few years now and the problem has worsened significantly as per her sisters. Her dementia is most probably due to Alzheimer 's Disease. Recommendations 1. Await all laboratory tests for dementia work up. 2. Cardiac workup as per Dr. Pulido. 3. Vitamin B12 - 1000 mcg SC monthly. 4. Keep physically and cognitively active. Nicki Melendez M.D., M.S.P.H. NICKI MELENDEZ Aug 07, 2017 19:36
--- NOTE | 2017-08-07 20:58 | General Progress Note ---
Assessment/Plan Problem List: (1) Syncope ICD Codes: R55 - Syncope and collapse SNOMED: [id number] Qualifiers: Qualified Codes: R55 - Syncope and collapse Status: progressing Assessment/Plan dementia no arrythmia e coli uti abx per id afebrile reviewed chart and meds Subjective ROS Limited/Unobtainable: Yes Allergies: Coded Allergies: LIDOCAINE (Verified Allergy, Unknown, 08/02/17) Objective Last 24 Hour Vital Signs Date Time Temp Pulse Resp B/P (MAP) Pulse Ox O2 Delivery O2 Flow Rate FiO2 08/07/17 20:00 97.9 100 17 150/75 100 Room Air 97.9 08/07/17 17:40 97.2 75 20 139/83 98 97.2 08/07/17 16:27 97.0 65 18 137/73 99 Room Air 97.0 08/07/17 12:11 97.3 63 18 135/68 97 Room Air 97.3 08/07/17 08:20 123/52 08/07/17 08:00 76 08/07/17 08:00 97.9 76 18 123/56 97 Room Air 97.9 08/07/17 04:00 97.8 74 18 136/80 94 97.8 08/07/17 04:00 Room Air 08/07/17 00:44 Room Air 08/07/17 00:00 97.2 67 18 131/71 98 97.2 Intake and Output 08/06/17 08/07/17 19:00 07:00 Intake Total 600 ml 315 ml Balance 600 ml 315 ml Intake Oral 600 ml 260 ml IV Total 55 ml # Voids 2 3 Height (Feet): 5 Height (Inches): 6.00 Weight (Pounds): 191 General Appearance: confused Cardiovascular: normal rate Respiratory/Chest: lungs clear Abdomen: soft Becky Celestin MD Aug 07, 2017 20:58
[2017-08-08] VITALS: BP 134/59
[2017-08-08] MEDS: ceFAZolin sod 1 GM in D5W 55 ML IVPB SCH ×2 (01:23→14:22)
[2017-08-08 04:09] VITALS: BP 150/74
[2017-08-08 07:29] LABS: BASOPHILS % (AUTO) 0.7 % (0.0-2.0); EOSINOPHILS % (AUTO) 1.6 % (0.0-3.0); HEMATOCRIT 39.9 % (37.0-47.0); HEMOGLOBIN 13.8 G/DL (12.0-16.0); LYMPHOCYTES % (AUTO) 29.1 % (20.0-45.0); MEAN CORPUSCULAR VOLUME 87 FL (80-99); MONOCYTES % (AUTO) 5.8 % (1.0-10.0); NEUTROPHILS % (AUTO) 62.8 % (45.0-75.0); PLATELET COUNT 245 K/UL (150-450); RED BLOOD COUNT 4.59 M/UL (4.20-5.40); RED CELL DISTRIBUTION WIDTH 13.2 % (11.6-14.8); WHITE BLOOD COUNT 7.7 K/UL (4.8-10.8)
[2017-08-08 08:04] VITALS: BP 118/63
[2017-08-08] MEDS: Memantine 10mg tab ORAL SCH (08:19)
[2017-08-08] MEDS: Hyzaar 12.5mg/50mg tab ORAL SCH (08:20)
[2017-08-08 12:06] VITALS: BP 140/73
--- NOTE | 2017-08-08 12:33 | Infectious Diseases Prog Note ---
Assessment/Plan Assessment/Plan A: 1. Escherichia coli urinary tract infection. 2. Syncope and collapse. 3. Dementia with some behavioral problems. 4. Diabetes mellitus type 2. 5. Hypertension. 6. Hypothyroidism. P; Can be discharged to SNF with PO Keflex 500 mg Q 8 hours X 3 days Subjective ROS Limited/Unobtainable: No Constitutional: Reports: no symptoms Respiratory: Reports: no symptoms Cardiovascular: Reports: no symptoms Gastrointestinal/Abdominal: Reports: no symptoms Genitourinary: Reports: no symptoms Allergies: Coded Allergies: LIDOCAINE (Verified Allergy, Unknown, 08/02/17) Objective Vital Signs Last 24 Hour Vital Signs Date Time Temp Pulse Resp B/P (MAP) Pulse Ox O2 Delivery O2 Flow Rate FiO2 08/08/17 12:06 98.5 72 20 140/73 97 Room Air 98.5 08/08/17 08:20 118/68 08/08/17 08:04 98.0 75 20 118/63 96 Room Air 98.0 08/08/17 08:04 75 74 78 08/08/17 04:09 97.4 79 20 150/74 94 Room Air 97.4 08/08/17 04:00 79 67 08/08/17 00:00 97.7 68 20 134/59 98 Room Air 97.7 08/07/17 20:00 97.9 100 17 150/75 100 Room Air 97.9 08/07/17 17:40 97.2 75 20 139/83 98 97.2 08/07/17 16:27 97.0 65 18 137/73 99 Room Air 97.0 Height (Feet): 5 Height (Inches): 6.00 Weight (Pounds): 191 General Appearance: no acute distress HEENT: mucous membranes moist Respiratory/Chest: lungs clear Cardiovascular: normal rate Abdomen: soft, non tender Extremities: no edema Neurologic/Psychiatric: alert, oriented x 3, responsive Laboratory Tests Test 08/08/17 07:15 White Blood Count 7.7 K/UL (4.8-10.8) Red Blood Count 4.59 M/UL (4.20-5.40) Hemoglobin 13.8 G/DL (12.0-16.0) Hematocrit 39.9 % (37.0-47.0) Mean Corpuscular Volume 87 FL (80-99) Mean Corpuscular Hemoglobin 30.1 PG (27.0-31.0) Mean Corpuscular Hemoglobin Concent 34.7 G/DL (32.0-36.0) Red Cell Distribution Width 13.2 % (11.6-14.8) Platelet Count 245 K/UL (150-450) Mean Platelet Volume 7.1 FL (6.5-10.1) Neutrophils (%) (Auto) 62.8 % (45.0-75.0) Lymphocytes (%) (Auto) 29.1 % (20.0-45.0) Monocytes (%) (Auto) 5.8 % (1.0-10.0) Eosinophils (%) (Auto) 1.6 % (0.0-3.0) Basophils (%) (Auto) 0.7 % (0.0-2.0) Current Medications Medications (Trade) Dose Ordered Sig/Davis Route PRN Reason Start Time Stop Time Status Last Admin Dose Admin Acetaminophen (Tylenol) 500 mg Q4H PRN ORAL Mild Pain/Temp > 100.5 08/04/17 17:30 09/01/17 21:29 Cefazolin Sodium 1 gm/Dextrose 55 ml @ 110 mls/hr Q12H IVPB 08/06/17 14:00 08/13/17 13:59 08/08/17 01:23 HCTZ/Losartan Potassium (Hyzaar 50-12.5) 1 tab DAILY ORAL 08/05/17 09:00 09/02/17 08:59 08/08/17 08:20 Levothyroxine Sodium (Synthroid) 50 mcg DAILY@0630 ORAL 08/05/17 06:30 09/02/17 06:29 08/08/17 06:12 Memantine (Namenda) 10 mg DAILY ORAL 08/06/17 09:00 09/05/17 08:59 08/08/17 08:19 Pravastatin Sodium (Pravachol) 20 mg BEDTIME ORAL 08/04/17 21:00 09/02/17 20:59 08/07/17 20:34 RIDDHI ROONEY Aug 08, 2017 12:33
[2017-08-08] MEDS ORDERED: CEPHALEXIN500 MG ORAL (12:35)
--- NOTE | 2017-08-08 15:17 | Cardiac Electrophysiology PN ---
Assessment/Plan Assessment/Plan 1. Syncopal episodes. No arrhythmia on telemetry. Now off tele. Echo EF 60%. 2. Hypertension. Stable on Hyzaar 50/12.5 mg daily. 3. Hyperlipidemia. On Pravachol. 4. Hypothyroidism. On Synthroid. NICOLE RN OK to DC Subjective Subjective Comfortable in NAD. RN at bedside. DC planning today. Objective Last 24 Hour Vital Signs Date Time Temp Pulse Resp B/P (MAP) Pulse Ox O2 Delivery O2 Flow Rate FiO2 08/08/17 12:06 98.5 72 20 140/73 97 Room Air 98.5 08/08/17 08:20 118/68 08/08/17 08:04 98.0 75 20 118/63 96 Room Air 98.0 08/08/17 08:04 75 74 78 08/08/17 04:09 97.4 79 20 150/74 94 Room Air 97.4 08/08/17 04:00 79 67 08/08/17 00:00 97.7 68 20 134/59 98 Room Air 97.7 08/07/17 20:00 97.9 100 17 150/75 100 Room Air 97.9 08/07/17 17:40 97.2 75 20 139/83 98 97.2 08/07/17 16:27 97.0 65 18 137/73 99 Room Air 97.0 Intake and Output 08/07/17 08/08/17 19:00 07:00 Intake Total 775 ml 120 ml Balance 775 ml 120 ml Intake Oral 720 ml 120 ml IV Total 55 ml # Voids 4 2 Laboratory Tests Test 08/08/17 07:15 White Blood Count 7.7 K/UL (4.8-10.8) Red Blood Count 4.59 M/UL (4.20-5.40) Hemoglobin 13.8 G/DL (12.0-16.0) Hematocrit 39.9 % (37.0-47.0) Mean Corpuscular Volume 87 FL (80-99) Mean Corpuscular Hemoglobin 30.1 PG (27.0-31.0) Mean Corpuscular Hemoglobin Concent 34.7 G/DL (32.0-36.0) Red Cell Distribution Width 13.2 % (11.6-14.8) Platelet Count 245 K/UL (150-450) Mean Platelet Volume 7.1 FL (6.5-10.1) Neutrophils (%) (Auto) 62.8 % (45.0-75.0) Lymphocytes (%) (Auto) 29.1 % (20.0-45.0) Monocytes (%) (Auto) 5.8 % (1.0-10.0) Eosinophils (%) (Auto) 1.6 % (0.0-3.0) Basophils (%) (Auto) 0.7 % (0.0-2.0) Objective HEAD AND NECK: No JVD LUNGS: Clear. CARDIOVASCULAR: Regular S1 and S2 with no gallop or murmur. ABDOMEN: Soft and nontender. EXTREMITIES: No pitting edema. Bam Pulido MD Aug 08, 2017 15:17
[2017-08-08 15:39] VITALS: BP 129/75
--- NOTE | 2017-08-08 19:20 | Neurology Progress Note ---
Interim History Interim History Interim History Ms. Vicente feels well. She is sitting up in a chair watching TV. She is unable to tell me what she is watching. She is confused and disoriented. She continues to cognitively impoverished. She continues to have no memory. She has had no further episodes of loss of consciousness. She denies any new problems. Review of Systems Neuro Review of Systems Benign. Objective Physical Exam Last Vital Signs Date Time Temp Pulse Resp B/P (MAP) Pulse Ox O2 Delivery O2 Flow Rate FiO2 08/08/17 15:39 97.8 69 20 129/75 96 Room Air 97.8 Laboratory Tests Test 08/08/17 07:15 White Blood Count 7.7 K/UL (4.8-10.8) Red Blood Count 4.59 M/UL (4.20-5.40) Hemoglobin 13.8 G/DL (12.0-16.0) Hematocrit 39.9 % (37.0-47.0) Mean Corpuscular Volume 87 FL (80-99) Mean Corpuscular Hemoglobin 30.1 PG (27.0-31.0) Mean Corpuscular Hemoglobin Concent 34.7 G/DL (32.0-36.0) Red Cell Distribution Width 13.2 % (11.6-14.8) Platelet Count 245 K/UL (150-450) Mean Platelet Volume 7.1 FL (6.5-10.1) Neutrophils (%) (Auto) 62.8 % (45.0-75.0) Lymphocytes (%) (Auto) 29.1 % (20.0-45.0) Monocytes (%) (Auto) 5.8 % (1.0-10.0) Eosinophils (%) (Auto) 1.6 % (0.0-3.0) Basophils (%) (Auto) 0.7 % (0.0-2.0) Neurologic Exam Objective PHYSICAL EXAMINATION: GENERAL: She is a well-developed, well-nourished, pleasant lady, sitting up in bed, in no acute distress. HEAD: Normocephalic and atraumatic. EENT: Examination benign. NECK: No neck rigidity was observed. NEUROLOGIC EXAMINATION: MENTAL STATUS EXAMINATION: She was awake and alert. She was oriented to self only. She had no idea where she was or what the date was. She was able to recall 3/3 words immediately, but could not remember any of them in 1 minute and 3 minutes. She knew that Karthik was president but was unable to tell me who prior presidents were. Her mathematical skills were impaired. Her visuospatial function was also impaired. SPEECH: She had no dysarthria. LANGUAGE: She had anomia for low and mid frequency words. CRANIAL NERVE EXAMINATION: II: The visual allen were intact to confrontation testing. III, IV & : The external ocular movements were full and the pupils 3 mm in diameter, equal, round, regular, and reactive to light. V: She had normal facial sensations and the temporales, masseters, and pterygoids functioned normally. VII: She had normal facial expressions and no facial asymmetry. VIII: She was able to hear well bilaterally and had no nystagmus. IX: The palate moved symmetrically on phonation. X: She had no hoarseness of voice. XI: The sternocleidomastoids and trapezii functioned normally. XII: The tongue was in the midline without any fasciculations or atrophy. MOTOR SYSTEM: The tone was normal in all four extremities. Examination of muscle mass revealed no focal wasting. Examination of power revealed grade 5/5 power in all muscle groups tested. SENSORY EXAMINATION: She had intact sensations to pinprick and light touch. Position sense was diminished in the toes bilaterally, but was normal in the fingers bilaterally. COORDINATION: She performed well on [id number] and [id number] testing. Romberg test could not be performed because even with eyes open when she was made to stand with feet together, she was quite unsteady. REFLEXES: Trace+ and bilaterally symmetrical at the biceps, triceps, brachioradialis, and knees, 0 at both ankles. The plantar responses were flexor bilaterally. STANCE: She had a stable stance. GAIT: She walked with a stable gait. Impression/Recommendations Diagnostic Impression 1. Ms. Erin Vicente is an 81-year-old, right-handed, lady, who does have a past history of hypothyroidism, hypertension, diabetes mellitus, and dementia, who was hospitalized for multiple episodes of loss of consciousness, thought to be syncopal episodes. She herself cannot elaborate on them because of her significant cognitive dysfunction. 2. She feels well. She is sitting up in a chair watching TV. She is unable to tell me what she is watching. She is confused and disoriented. She continues to cognitively impoverished. She continues to have no memory. She has had no further episodes of loss of consciousness. She denies any new problems. 3. On neurological examination, at this time, she does have severe problems with orientation, recent and remote memory, visuospatial function, higher cognitive function, and language. She also has globally diminished deep tendon reflexes, decreased position sense in the toes bilaterally, a wide-based stance and a wide-based gait. 4. Laboratory data obtained thus far revealed that her WBC count is elevated to 12,300 and a blood sugar is elevated to 144. In addition she is Vitamin B12 deficient with a level of 295. She also has a mild UTI. 5. The patient's history and neurological examination are most compatible with recent syncopal episodes. 6. She has also had a dementia for a few years now and the problem has worsened significantly as per her sisters. Her dementia is most probably due to Alzheimer 's Disease. Recommendations 1. Await all laboratory tests for dementia work up. 2. Cardiac workup as per Dr. Pulido. 3. Vitamin B12 - 1000 mcg SC monthly. 4. Keep physically and cognitively active. Nicki Melendez M.D., M.S.P.H. NICKI MELENDEZ Aug 08, 2017 19:20
[2017-08-08 20:00] VITALS: BP 113/73
--- NOTE | 2017-08-08 20:47 | General Progress Note ---
Assessment/Plan Problem List: (1) Syncope ICD Codes: R55 - Syncope and collapse SNOMED: [id number] Qualifiers: Qualified Codes: R55 - Syncope and collapse Status: progressing Assessment/Plan dementia no arrythmia e coli uti needs placement in snf advanced dementia spoke w winston reviewed chart and meds Subjective ROS Limited/Unobtainable: Yes Allergies: Coded Allergies: LIDOCAINE (Verified Allergy, Unknown, 08/02/17) Objective Last 24 Hour Vital Signs Date Time Temp Pulse Resp B/P (MAP) Pulse Ox O2 Delivery O2 Flow Rate FiO2 08/08/17 15:39 97.8 69 20 129/75 96 Room Air 97.8 08/08/17 12:06 98.5 72 20 140/73 97 Room Air 98.5 08/08/17 08:20 118/68 08/08/17 08:04 98.0 75 20 118/63 96 Room Air 98.0 08/08/17 08:04 75 74 78 08/08/17 04:09 97.4 79 20 150/74 94 Room Air 97.4 08/08/17 04:00 79 67 08/08/17 00:00 97.7 68 20 134/59 98 Room Air 97.7 Intake and Output 08/07/17 08/08/17 19:00 07:00 Intake Total 775 ml 120 ml Balance 775 ml 120 ml Intake Oral 720 ml 120 ml IV Total 55 ml # Voids 4 2 Laboratory Tests 08/08/17 07:15: White Blood Count 7.7, Red Blood Count 4.59, Hemoglobin 13.8, Hematocrit 39.9, Mean Corpuscular Volume 87, Mean Corpuscular Hemoglobin 30.1, Mean Corpuscular Hemoglobin Concent 34.7, Red Cell Distribution Width 13.2, Platelet Count 245, Mean Platelet Volume 7.1, Neutrophils (%) (Auto) 62.8, Lymphocytes (%) (Auto) 29.1, Monocytes (%) (Auto) 5.8, Eosinophils (%) (Auto) 1.6, Basophils (%) (Auto ) 0.7 Height (Feet): 5 Height (Inches): 6.00 Weight (Pounds): 191 Cardiovascular: normal rate Respiratory/Chest: lungs clear Abdomen: soft Becky Celestin MD Aug 08, 2017 20:47
--- NOTE | 2017-08-08 21:55 | General Progress Note ---
Assessment/Plan Status: stable Assessment/Plan Dementia with behavioral disturbance Anxiety d/o Encephalopathy Namenda Subjective Date patient seen: Aug 08, 2017 Neurologic/Psychiatric: Reports: anxiety, depressed, emotional problems Allergies: Coded Allergies: LIDOCAINE (Verified Allergy, Unknown, 08/02/17) Objective Last 24 Hour Vital Signs Date Time Temp Pulse Resp B/P (MAP) Pulse Ox O2 Delivery O2 Flow Rate FiO2 08/08/17 20:00 98.1 69 19 113/73 95 Room Air 98.1 08/08/17 15:39 97.8 69 20 129/75 96 Room Air 97.8 08/08/17 12:06 98.5 72 20 140/73 97 Room Air 98.5 08/08/17 08:20 118/68 08/08/17 08:04 98.0 75 20 118/63 96 Room Air 98.0 08/08/17 08:04 75 74 78 08/08/17 04:09 97.4 79 20 150/74 94 Room Air 97.4 08/08/17 04:00 79 67 08/08/17 00:00 97.7 68 20 134/59 98 Room Air 97.7 Intake and Output 08/07/17 08/08/17 19:00 07:00 Intake Total 775 ml 120 ml Balance 775 ml 120 ml Intake Oral 720 ml 120 ml IV Total 55 ml # Voids 4 2 Laboratory Tests 08/08/17 07:15: White Blood Count 7.7, Red Blood Count 4.59, Hemoglobin 13.8, Hematocrit 39.9, Mean Corpuscular Volume 87, Mean Corpuscular Hemoglobin 30.1, Mean Corpuscular Hemoglobin Concent 34.7, Red Cell Distribution Width 13.2, Platelet Count 245, Mean Platelet Volume 7.1, Neutrophils (%) (Auto) 62.8, Lymphocytes (%) (Auto) 29.1, Monocytes (%) (Auto) 5.8, Eosinophils (%) (Auto) 1.6, Basophils (%) (Auto ) 0.7 Height (Feet): 5 Height (Inches): 6.00 Weight (Pounds): 191 General Appearance: no apparent distress, alert, confused - orientedx2 Neurologic: alert, responsive, depressed affect Jonathon Ford M.D. Aug 08, 2017 21:55
--- NOTE | 2017-08-08 21:57 | Geriatric Progress Note ---
Assessment/Plan Assessment/Plan Dementia with behavioral disturbance Anxiety d/o Encephalopathy Namenda Subjective Interval Events 08/07/17 Mood/Memory: Reports: prior hx, anxiety, depressed feelings Geriatric Geriatric Last 24 Hour Vital Signs Date Time Temp Pulse Resp B/P (MAP) Pulse Ox O2 Delivery O2 Flow Rate FiO2 08/08/17 20:00 98.1 69 19 113/73 95 Room Air 98.1 08/08/17 15:39 97.8 69 20 129/75 96 Room Air 97.8 08/08/17 12:06 98.5 72 20 140/73 97 Room Air 98.5 08/08/17 08:20 118/68 08/08/17 08:04 98.0 75 20 118/63 96 Room Air 98.0 08/08/17 08:04 75 74 78 08/08/17 04:09 97.4 79 20 150/74 94 Room Air 97.4 08/08/17 04:00 79 67 08/08/17 00:00 97.7 68 20 134/59 98 Room Air 97.7 Intake and Output 08/07/17 08/08/17 19:00 07:00 Intake Total 775 ml 120 ml Balance 775 ml 120 ml Intake Oral 720 ml 120 ml IV Total 55 ml # Voids 4 2 Laboratory Tests Test 08/08/17 07:15 White Blood Count 7.7 K/UL (4.8-10.8) Red Blood Count 4.59 M/UL (4.20-5.40) Hemoglobin 13.8 G/DL (12.0-16.0) Hematocrit 39.9 % (37.0-47.0) Mean Corpuscular Volume 87 FL (80-99) Mean Corpuscular Hemoglobin 30.1 PG (27.0-31.0) Mean Corpuscular Hemoglobin Concent 34.7 G/DL (32.0-36.0) Red Cell Distribution Width 13.2 % (11.6-14.8) Platelet Count 245 K/UL (150-450) Mean Platelet Volume 7.1 FL (6.5-10.1) Neutrophils (%) (Auto) 62.8 % (45.0-75.0) Lymphocytes (%) (Auto) 29.1 % (20.0-45.0) Monocytes (%) (Auto) 5.8 % (1.0-10.0) Eosinophils (%) (Auto) 1.6 % (0.0-3.0) Basophils (%) (Auto) 0.7 % (0.0-2.0) Current Medications Medications (Trade) Dose Ordered Sig/Davis Route PRN Reason Start Time Stop Time Status Last Admin Dose Admin Acetaminophen (Tylenol) 500 mg Q4H PRN ORAL Mild Pain/Temp > 100.5 08/04/17 17:30 09/01/17 21:29 Cefazolin Sodium 1 gm/Dextrose 55 ml @ 110 mls/hr Q12H IVPB 08/06/17 14:00 08/13/17 13:59 08/08/17 14:22 HCTZ/Losartan Potassium (Hyzaar 50-12.5) 1 tab DAILY ORAL 08/05/17 09:00 09/02/17 08:59 08/08/17 08:20 Levothyroxine Sodium (Synthroid) 50 mcg DAILY@0630 ORAL 08/05/17 06:30 09/02/17 06:29 08/08/17 06:12 Memantine (Namenda) 10 mg DAILY ORAL 08/06/17 09:00 09/05/17 08:59 08/08/17 08:19 Pravastatin Sodium (Pravachol) 20 mg BEDTIME ORAL 08/04/17 21:00 09/02/17 20:59 08/08/17 20:18 Height (Feet): 5 Height (Inches): 6.00 Weight (Pounds): 191 General Appearance: well appearing, well dressed, alert Jonathon Ford M.D. Aug 08, 2017 21:57
[2017-08-09] VITALS: BP 128/75
[2017-08-09] MEDS: ceFAZolin sod 1 GM in D5W 55 ML IVPB SCH ×2 (03:30→13:48)
[2017-08-09 04:00] VITALS: BP 124/74
[2017-08-09 08:00] VITALS: BP 118/59
[2017-08-09] MEDS: Memantine 10mg tab ORAL SCH (09:05)
[2017-08-09] MEDS: Hyzaar 12.5mg/50mg tab ORAL SCH (09:05)
[2017-08-09] MEDS ORDERED: Tubing IV Secondary IV ONE (09:21)
[2017-08-09] MEDS ORDERED: NS 500ML ONE (09:21)
--- NOTE | 2017-08-09 11:45 | Infectious Diseases Prog Note ---
Assessment/Plan Assessment/Plan A: 1. Escherichia coli urinary tract infection. 2. Syncope and collapse. 3. Dementia with some behavioral problems. 4. Diabetes mellitus type 2. 5. Hypertension. 6. Hypothyroidism. P; Can be discharged to SNF with PO Keflex 500 mg Q 8 hours X 2 days Subjective ROS Limited/Unobtainable: No Respiratory: Reports: no symptoms Cardiovascular: Reports: no symptoms Gastrointestinal/Abdominal: Reports: no symptoms Genitourinary: Reports: no symptoms Allergies: Coded Allergies: LIDOCAINE (Verified Allergy, Unknown, 08/02/17) Objective Vital Signs Last 24 Hour Vital Signs Date Time Temp Pulse Resp B/P (MAP) Pulse Ox O2 Delivery O2 Flow Rate FiO2 08/09/17 09:05 118/59 08/09/17 08:00 97.7 79 18 118/59 95 Room Air 97.7 08/09/17 08:00 79 84 97 08/09/17 04:00 98.2 70 18 124/74 96 Room Air 98.2 08/09/17 00:00 98.0 72 20 128/75 95 Room Air 98.0 08/08/17 20:00 98.1 69 19 113/73 95 Room Air 98.1 08/08/17 15:39 97.8 69 20 129/75 96 Room Air 97.8 08/08/17 12:06 98.5 72 20 140/73 97 Room Air 98.5 Height (Feet): 5 Height (Inches): 6.00 Weight (Pounds): 191 HEENT: mucous membranes moist Respiratory/Chest: lungs clear Cardiovascular: normal rate Abdomen: soft, non tender Extremities: no edema Neurologic/Psychiatric: alert, responsive Current Medications Medications (Trade) Dose Ordered Sig/Davis Route PRN Reason Start Time Stop Time Status Last Admin Dose Admin Acetaminophen (Tylenol) 500 mg Q4H PRN ORAL Mild Pain/Temp > 100.5 08/04/17 17:30 09/01/17 21:29 Cefazolin Sodium 1 gm/Dextrose 55 ml @ 110 mls/hr Q12H IVPB 08/06/17 14:00 08/13/17 13:59 08/09/17 03:30 HCTZ/Losartan Potassium (Hyzaar 50-12.5) 1 tab DAILY ORAL 08/05/17 09:00 09/02/17 08:59 08/09/17 09:05 Levothyroxine Sodium (Synthroid) 50 mcg DAILY@0630 ORAL 08/05/17 06:30 09/02/17 06:29 08/09/17 06:41 Memantine (Namenda) 10 mg DAILY ORAL 08/06/17 09:00 09/05/17 08:59 08/09/17 09:05 Pravastatin Sodium (Pravachol) 20 mg BEDTIME ORAL 08/04/17 21:00 09/02/17 20:59 08/08/17 20:18 RIDDHI ROONEY Aug 09, 2017 11:45
[2017-08-09 12:05] VITALS: BP 144/93
[2017-08-09 15:44] VITALS: BP 141/68
--- NOTE | 2017-08-09 16:34 | Cardiac Electrophysiology PN ---
Assessment/Plan Assessment/Plan 1. Syncopal episodes. No arrhythmia on telemetry. Now off tele. Echo EF 60%. 2. Hypertension. Stable on Hyzaar 50/12.5 mg daily. 3. Hyperlipidemia. On Pravachol. 4. Hypothyroidism. On Synthroid. Subjective Subjective Comfortable in NAD.Transferred to 3rd floor Objective Last 24 Hour Vital Signs Date Time Temp Pulse Resp B/P (MAP) Pulse Ox O2 Delivery O2 Flow Rate FiO2 08/09/17 15:44 97.9 76 20 141/68 98 97.9 08/09/17 12:05 97.8 70 22 144/93 96 Room Air 97.8 08/09/17 09:05 118/59 08/09/17 08:00 97.7 79 18 118/59 95 Room Air 97.7 08/09/17 08:00 79 84 97 08/09/17 04:00 98.2 70 18 124/74 96 Room Air 98.2 08/09/17 00:00 98.0 72 20 128/75 95 Room Air 98.0 08/08/17 20:00 98.1 69 19 113/73 95 Room Air 98.1 Intake and Output 08/08/17 08/09/17 19:00 07:00 Intake Total 915 ml 400 ml Balance 915 ml 400 ml Intake Oral 860 ml 400 ml IV Total 55 ml # Voids 4 2 Objective HEAD AND NECK: No JVD LUNGS: Clear. CARDIOVASCULAR: Regular S1 and S2 with no gallop or murmur. ABDOMEN: Soft and nontender. EXTREMITIES: No pitting edema. Bam Pulido MD Aug 09, 2017 16:34
[2017-08-09 20:02] VITALS: BP 128/65
--- NOTE | 2017-08-09 21:17 | General Progress Note ---
Assessment/Plan Problem List: (1) Syncope ICD Codes: R55 - Syncope and collapse SNOMED: [id number] Qualifiers: Qualified Codes: R55 - Syncope and collapse Status: progressing Assessment/Plan dementia awaiting facility placement e coli uti needs placement in snf Subjective ROS Limited/Unobtainable: Yes Allergies: Coded Allergies: LIDOCAINE (Verified Allergy, Unknown, 08/02/17) Objective Last 24 Hour Vital Signs Date Time Temp Pulse Resp B/P (MAP) Pulse Ox O2 Delivery O2 Flow Rate FiO2 08/09/17 20:02 98.0 82 19 128/65 98 98.0 08/09/17 15:44 97.9 76 20 141/68 98 97.9 08/09/17 12:05 97.8 70 22 144/93 96 Room Air 97.8 08/09/17 09:05 118/59 08/09/17 08:00 97.7 79 18 118/59 95 Room Air 97.7 08/09/17 08:00 79 84 97 08/09/17 04:00 98.2 70 18 124/74 96 Room Air 98.2 08/09/17 00:00 98.0 72 20 128/75 95 Room Air 98.0 Intake and Output 08/08/17 08/09/17 19:00 07:00 Intake Total 915 ml 400 ml Balance 915 ml 400 ml Intake Oral 860 ml 400 ml IV Total 55 ml # Voids 4 2 Height (Feet): 5 Height (Inches): 6.00 Weight (Pounds): 191 General Appearance: confused Becky Celestin MD Aug 09, 2017 21:17
--- NOTE | 2017-08-09 21:29 | Neurology Progress Note ---
Interim History Interim History Interim History Ms. Vicente feels well. She is in bed and is planning to go to bed soon. She is confused and disoriented. She continues to cognitively impoverished. She continues to have no memory. She has had no further episodes of loss of consciousness. She denies any new problems. Review of Systems Neuro Review of Systems Benign. Objective Physical Exam Last Vital Signs Date Time Temp Pulse Resp B/P (MAP) Pulse Ox O2 Delivery O2 Flow Rate FiO2 08/09/17 20:02 98.0 82 19 128/65 98 98.0 08/09/17 12:05 Room Air Neurologic Exam Objective PHYSICAL EXAMINATION: GENERAL: She is a well-developed, well-nourished, pleasant lady, sitting up in bed, in no acute distress. HEAD: Normocephalic and atraumatic. EENT: Examination benign. NECK: No neck rigidity was observed. NEUROLOGIC EXAMINATION: MENTAL STATUS EXAMINATION: She was awake and alert. She was oriented to self only. She had no idea where she was or what the date was. She was able to recall 3/3 words immediately, but could not remember any of them in 1 minute and 3 minutes. She knew that Karthik was president but was unable to tell me who prior presidents were. Her mathematical skills were impaired. Her visuospatial function was also impaired. SPEECH: She had no dysarthria. LANGUAGE: She had anomia for low and mid frequency words. CRANIAL NERVE EXAMINATION: II: The visual allen were intact to confrontation testing. III, IV & : The external ocular movements were full and the pupils 3 mm in diameter, equal, round, regular, and reactive to light. V: She had normal facial sensations and the temporales, masseters, and pterygoids functioned normally. VII: She had normal facial expressions and no facial asymmetry. VIII: She was able to hear well bilaterally and had no nystagmus. IX: The palate moved symmetrically on phonation. X: She had no hoarseness of voice. XI: The sternocleidomastoids and trapezii functioned normally. XII: The tongue was in the midline without any fasciculations or atrophy. MOTOR SYSTEM: The tone was normal in all four extremities. Examination of muscle mass revealed no focal wasting. Examination of power revealed grade 5/5 power in all muscle groups tested. SENSORY EXAMINATION: She had intact sensations to pinprick and light touch. Position sense was diminished in the toes bilaterally, but was normal in the fingers bilaterally. COORDINATION: She performed well on [id number] and [id number] testing. Romberg test could not be performed because even with eyes open when she was made to stand with feet together, she was quite unsteady. REFLEXES: Trace+ and bilaterally symmetrical at the biceps, triceps, brachioradialis, and knees, 0 at both ankles. The plantar responses were flexor bilaterally. STANCE: She had a stable stance. GAIT: She walked with a stable gait. Impression/Recommendations Diagnostic Impression 1. Ms. Erni Vicente is an 81-year-old, right-handed, lady, who does have a past history of hypothyroidism, hypertension, diabetes mellitus, and dementia, who was hospitalized for multiple episodes of loss of consciousness, thought to be syncopal episodes. She herself cannot elaborate on them because of her significant cognitive dysfunction. 2. She feels well. She is confused and disoriented. She continues to cognitively impoverished. She continues to have no memory. She has had no further episodes of loss of consciousness. She denies any new problems. 3. On neurological examination, at this time, she does have severe problems with orientation, recent and remote memory, visuospatial function, higher cognitive function, and language. She also has globally diminished deep tendon reflexes, decreased position sense in the toes bilaterally, a wide-based stance and a wide-based gait. 4. Laboratory data obtained thus far revealed that her WBC count is elevated to 12,300 and a blood sugar is elevated to 144. In addition she is Vitamin B12 deficient with a level of 295. She also has a mild UTI. 5. The patient's history and neurological examination are most compatible with recent syncopal episodes. 6. She has also had a dementia for a few years now and the problem has worsened significantly as per her sisters. Her dementia is most probably due to Alzheimer 's Disease. Recommendations 1. Await all laboratory tests for dementia work up. 2. Vitamin B12 - 1000 mcg SC monthly. 3. Keep physically and cognitively active. Nicki Melendez M.D., M.S.[facility]. NICKI MELENDEZ Aug 09, 2017 21:29
--- NOTE | 2017-08-09 23:42 | General Progress Note ---
Assessment/Plan Assessment/Plan Dementia with behavioral disturbance Anxiety d/o Encephalopathy Namenda zyprexa 5mg qhs Subjective Date patient seen: Aug 09, 2017 Neurologic/Psychiatric: Reports: anxiety, depressed, emotional problems Allergies: Coded Allergies: LIDOCAINE (Verified Allergy, Unknown, 08/02/17) Subjective delusional Objective Last 24 Hour Vital Signs Date Time Temp Pulse Resp B/P (MAP) Pulse Ox O2 Delivery O2 Flow Rate FiO2 08/09/17 20:02 98.0 82 19 128/65 98 98.0 08/09/17 15:44 97.9 76 20 141/68 98 97.9 08/09/17 12:05 97.8 70 22 144/93 96 Room Air 97.8 08/09/17 09:05 118/59 08/09/17 08:00 97.7 79 18 118/59 95 Room Air 97.7 08/09/17 08:00 79 84 97 08/09/17 04:00 98.2 70 18 124/74 96 Room Air 98.2 08/09/17 00:00 98.0 72 20 128/75 95 Room Air 98.0 Intake and Output 08/08/17 08/09/17 19:00 07:00 Intake Total 915 ml 400 ml Balance 915 ml 400 ml Intake Oral 860 ml 400 ml IV Total 55 ml # Voids 4 2 Height (Feet): 5 Height (Inches): 6.00 Weight (Pounds): 191 General Appearance: no apparent distress, alert Jonathon Ford M.D. Aug 09, 2017 23:42
[2017-08-10] VITALS: BP 124/64
[2017-08-10] MEDS: ceFAZolin sod 1 GM in D5W 55 ML IVPB SCH ×2 (02:31→14:28)
[2017-08-10 04:00] VITALS: BP 124/64
[2017-08-10 05:40] VITALS: BP 122/60
[2017-08-10 08:00] VITALS: BP 141/51
[2017-08-10] MEDS: Hyzaar 12.5mg/50mg tab ORAL SCH (09:23)
[2017-08-10] MEDS: Memantine 10mg tab ORAL SCH (09:24)
[2017-08-10 12:00] VITALS: BP 137/78
--- NOTE | 2017-08-10 12:09 | Infectious Diseases Prog Note ---
Assessment/Plan Assessment/Plan A: 1. Escherichia coli urinary tract infection. 2. Syncope and collapse. 3. Dementia with some behavioral problems. 4. Diabetes mellitus type 2. 5. Hypertension. 6. Hypothyroidism. P; Can be discharged to SNF with PO Keflex 500 mg Q 8 hours X 1 day Subjective ROS Limited/Unobtainable: No Constitutional: Reports: no symptoms Respiratory: Reports: no symptoms Cardiovascular: Reports: no symptoms Gastrointestinal/Abdominal: Reports: no symptoms Genitourinary: Reports: no symptoms Allergies: Coded Allergies: LIDOCAINE (Verified Allergy, Unknown, 08/02/17) Objective Vital Signs Last 24 Hour Vital Signs Date Time Temp Pulse Resp B/P (MAP) Pulse Ox O2 Delivery O2 Flow Rate FiO2 08/10/17 09:23 114/69 08/10/17 08:00 67 78 69 08/10/17 08:00 98.2 78 21 141/51 97 98.2 08/10/17 05:40 98.0 78 19 122/60 98 Room Air 98.0 08/10/17 04:00 97.7 80 18 124/64 98 Room Air 97.7 08/10/17 00:00 97.7 80 18 124/64 98 Room Air 97.7 08/09/17 20:02 98.0 82 19 128/65 98 98.0 08/09/17 15:44 97.9 76 20 141/68 98 97.9 Height (Feet): 5 Height (Inches): 6.00 Weight (Pounds): 191 General Appearance: no acute distress HEENT: mucous membranes moist Respiratory/Chest: lungs clear Cardiovascular: normal rate Abdomen: soft, non tender Extremities: no edema Neurologic/Psychiatric: alert, responsive Current Medications Medications (Trade) Dose Ordered Sig/Davis Route PRN Reason Start Time Stop Time Status Last Admin Dose Admin Acetaminophen (Tylenol) 500 mg Q4H PRN ORAL Mild Pain/Temp > 100.5 08/04/17 17:30 09/01/17 21:29 Cefazolin Sodium 1 gm/Dextrose 55 ml @ 110 mls/hr Q12H IVPB 08/06/17 14:00 08/13/17 13:59 08/10/17 02:31 HCTZ/Losartan Potassium (Hyzaar 50-12.5) 1 tab DAILY ORAL 08/05/17 09:00 09/02/17 08:59 08/10/17 09:23 Levothyroxine Sodium (Synthroid) 50 mcg DAILY@0630 ORAL 08/05/17 06:30 09/02/17 06:29 08/10/17 05:28 Memantine (Namenda) 10 mg DAILY ORAL 08/06/17 09:00 09/05/17 08:59 08/10/17 09:24 Olanzapine (ZyPREXA) 5 mg BEDTIME ORAL 08/10/17 21:00 09/09/17 20:59 Pravastatin Sodium (Pravachol) 20 mg BEDTIME ORAL 08/04/17 21:00 09/02/17 20:59 08/09/17 20:43 RIDDHI ROONEY Aug 10, 2017 12:09
--- NOTE | 2017-08-10 13:24 | Cardiac Electrophysiology PN ---
Assessment/Plan Assessment/Plan 1. Syncopal episodes. No arrhythmia when on telemetry. Now off tele. Echo EF 60%. 2. Hypertension. Stable on Hyzaar 50/12.5 mg daily. 3. Hyperlipidemia. On Pravachol. 4. Hypothyroidism. On Synthroid. 5. Cough. Just started. No fever. Check CBC in am. Subjective Subjective Coughing today. Placement pending. Objective Last 24 Hour Vital Signs Date Time Temp Pulse Resp B/P (MAP) Pulse Ox O2 Delivery O2 Flow Rate FiO2 08/10/17 12:00 97.6 68 19 137/78 97 97.6 08/10/17 09:23 114/69 08/10/17 08:00 67 78 69 08/10/17 08:00 98.2 78 21 141/51 97 98.2 08/10/17 05:40 98.0 78 19 122/60 98 Room Air 98.0 08/10/17 04:00 97.7 80 18 124/64 98 Room Air 97.7 08/10/17 00:00 97.7 80 18 124/64 98 Room Air 97.7 08/09/17 20:02 98.0 82 19 128/65 98 98.0 08/09/17 15:44 97.9 76 20 141/68 98 97.9 Intake and Output 08/09/17 08/10/17 19:00 07:00 Intake Total 665 ml 280 ml Balance 665 ml 280 ml Intake Oral 665 ml 280 ml # Voids 2 1 Objective HEAD AND NECK: No JVD LUNGS: Clear. CARDIOVASCULAR: Regular S1 and S2 with no gallop or murmur. ABDOMEN: Soft and nontender. EXTREMITIES: No pitting edema. Bam Pulido MD Aug 10, 2017 13:24
[2017-08-10 16:00] VITALS: BP 124/63
--- NOTE | 2017-08-10 19:39 | Neurology Progress Note ---
Interim History Interim History Interim History Ms. Vicente feels well. Plans are to go to a SNF today. Her sisters are visiting her. She is still confused and disoriented. She continues to cognitively impoverished. She continues to have an exceedingly poor memory. She has had no further episodes of loss of consciousness. She denies any new problems. Review of Systems Neuro Review of Systems Benign. Objective Physical Exam Last Vital Signs Date Time Temp Pulse Resp B/P (MAP) Pulse Ox O2 Delivery O2 Flow Rate FiO2 08/10/17 16:00 98.7 69 17 124/63 97 98.7 08/10/17 05:40 Room Air Neurologic Exam Objective PHYSICAL EXAMINATION: GENERAL: She is a well-developed, well-nourished, pleasant lady, sitting up in in a chair, in no acute distress. HEAD: Normocephalic and atraumatic. EENT: Examination benign. NECK: No neck rigidity was observed. NEUROLOGIC EXAMINATION: MENTAL STATUS EXAMINATION: She was awake and alert. She was oriented to self only. She had no idea where she was or what the date was. She was able to recall 3/3 words immediately, but could not remember any of them in 1 minute and 3 minutes. She knew that Karthik was president but was unable to tell me who prior presidents were. Her mathematical skills were impaired. Her visuospatial function was also impaired. SPEECH: She had no dysarthria. LANGUAGE: She had anomia for low and mid frequency words. CRANIAL NERVE EXAMINATION: II: The visual allen were intact to confrontation testing. III, IV & : The external ocular movements were full and the pupils 3 mm in diameter, equal, round, regular, and reactive to light. V: She had normal facial sensations and the temporales, masseters, and pterygoids functioned normally. VII: She had normal facial expressions and no facial asymmetry. VIII: She was able to hear well bilaterally and had no nystagmus. IX: The palate moved symmetrically on phonation. X: She had no hoarseness of voice. XI: The sternocleidomastoids and trapezii functioned normally. XII: The tongue was in the midline without any fasciculations or atrophy. MOTOR SYSTEM: The tone was normal in all four extremities. Examination of muscle mass revealed no focal wasting. Examination of power revealed grade 5/5 power in all muscle groups tested. SENSORY EXAMINATION: She had intact sensations to pinprick and light touch. Position sense was diminished in the toes bilaterally, but was normal in the fingers bilaterally. COORDINATION: She performed well on [id number] and [id number] testing. Romberg test could not be performed because even with eyes open when she was made to stand with feet together, she was quite unsteady. REFLEXES: Trace+ and bilaterally symmetrical at the biceps, triceps, brachioradialis, and knees, 0 at both ankles. The plantar responses were flexor bilaterally. STANCE: She had a stable stance. GAIT: She walked with a stable gait. Impression/Recommendations Diagnostic Impression 1. Ms. Erin Vicente is an 81-year-old, right-handed, lady, who does have a past history of hypothyroidism, hypertension, diabetes mellitus, and dementia, who was hospitalized for multiple episodes of loss of consciousness, thought to be syncopal episodes. She herself cannot elaborate on them because of her significant cognitive dysfunction. 2. She feels well. She is confused and disoriented. She continues to cognitively impoverished. She continues to have an exceedingly poor memory. She has had no further episodes of loss of consciousness. She denies any new problems. 3. On neurological examination, at this time, she does have severe problems with orientation, recent and remote memory, visuospatial function, higher cognitive function, and language. She also has globally diminished deep tendon reflexes, decreased position sense in the toes bilaterally, a wide-based stance and a wide-based gait. 4. Laboratory data obtained thus far revealed that her WBC count is elevated to 12,300 and a blood sugar is elevated to 144. In addition she is Vitamin B12 deficient with a level of 295. Her Vitamin D level is normal. She also has a mild UTI. 5. The patient's history and neurological examination are most compatible with recent syncopal episodes. 6. She has also had a dementia for a few years now and the problem has worsened significantly as per her sisters. Her dementia is most probably due to Alzheimer 's Disease. Recommendations 1. Would add Aricept to her therapeutic regimen. 2. Continue Namenda. 3. Vitamin B12 - 1000 mcg SC monthly. 4. Keep physically and cognitively active. 5. Agree with transfer to a SNF. Nicki Melendez M.D., M.S.P.H. NICKI MELENDEZ Aug 10, 2017 19:39
--- NOTE | 2017-08-10 21:05 | General Progress Note ---
Assessment/Plan Problem List: (1) Syncope ICD Codes: R55 - Syncope and collapse SNOMED: [id number] Qualifiers: Qualified Codes: R55 - Syncope and collapse Status: progressing Assessment/Plan afebrile no acute events e coli uti needs placement Subjective ROS Limited/Unobtainable: Yes Allergies: Coded Allergies: LIDOCAINE (Verified Allergy, Unknown, 08/02/17) Objective Last 24 Hour Vital Signs Date Time Temp Pulse Resp B/P (MAP) Pulse Ox O2 Delivery O2 Flow Rate FiO2 08/10/17 16:00 98.7 69 17 124/63 97 98.7 08/10/17 12:00 97.6 68 19 137/78 97 97.6 08/10/17 09:23 114/69 08/10/17 08:00 67 78 69 08/10/17 08:00 98.2 78 21 141/51 97 98.2 08/10/17 05:40 98.0 78 19 122/60 98 Room Air 98.0 08/10/17 04:00 97.7 80 18 124/64 98 Room Air 97.7 08/10/17 00:00 97.7 80 18 124/64 98 Room Air 97.7 Intake and Output 08/09/17 08/10/17 19:00 07:00 Intake Total 665 ml 280 ml Balance 665 ml 280 ml Intake Oral 665 ml 280 ml # Voids 2 1 Height (Feet): 5 Height (Inches): 6.00 Weight (Pounds): 191 Neck: supple Cardiovascular: normal rate Respiratory/Chest: lungs clear Abdomen: soft Becky Celestin MD Aug 10, 2017 21:05
--- NOTE | 2017-08-11 14:26 | General Progress Note ---
Assessment/Plan Status: stable, progressing Assessment/Plan Dementia with behavioral disturbance Anxiety d/o Encephalopathy Namenda Zyprexa 5mg qhs Subjective Neurologic/Psychiatric: Reports: anxiety, depressed Allergies: Coded Allergies: LIDOCAINE (Verified Allergy, Unknown, 08/02/17) Subjective delusional Objective Last 24 Hour Vital Signs Date Time Temp Pulse Resp B/P (MAP) Pulse Ox O2 Delivery O2 Flow Rate FiO2 08/10/17 16:00 98.7 69 17 124/63 97 98.7 Intake and Output 08/10/17 08/11/17 19:00 07:00 Intake Total 680 ml Balance 680 ml Intake Oral 680 ml # Voids 3 Height (Feet): 5 Height (Inches): 6.00 Weight (Pounds): 191 General Appearance: WD/WN, no apparent distress, alert Neurologic: oriented x 3, responsive Jonathon Ford M.D. Aug 11, 2017 14:26
--- NOTE | 2017-08-12 16:37 | Discharge Summary ---
Discharge Summary Discharge Summary Discharge Summary DATE OF ADMISSION: 08/02/2017 DATE OF DISCHARGE: 08/10/2017 CONSULTANTS: Dr. Jonathon Jennings [facility] HOSPITAL COURSE: Patient is an 81-year-old female, presented to ED due to multiple episodes of loss of consciousness. She is demented and cannot remember details of the episodes of loss of consciousness. She has medical history significant for hypothyroidism, hypertension, diabetes mellitus and dementia. On evaluation at ED, blood work showed WBC 12.3, glucose 144, otherwise unremarkable. EKG was in normal sinus rhythm at the rate of 76 with no PVCs, no ectopy. Chest x-ray showed no acute disease. She was admitted for evaluation of multiple episodes of loss of consciousness, thought to be syncopal episodes. She cannot elaborate on them because of her significant cognitive dysfunction. She underwent neurologic evaluation, she have problems with orientation, recent and remote memory, visual spatial function, higher cognitive function. She underwent cardiac evaluation. There was no arrhythmia on telemetry. She was continued on Hyzaar 50/12 0.5 mg daily , Pravachol, Synthroid. Echocardiogram showed ejection fraction 60% with normal left ventricular size and function and wall motion. No evidence of left ventricular hypertrophy. No evidence of pericardial effusion. No aortic regurgitation. Mild mitral regurgitation. Carotid duplex revealed no significant plaque within the right and left extracranial carotid arteries. She has impairment of memory, concentration and attention. She has poor insight. She was diagnosed with dementia with behavioral disturbance and encephalopathy. She was given Namenda every morning and Zyprexa daily at bedtime. She was given vitamin B12 supplements, B12 level CCXCV. Urine culture came back positive for Escherichia coli. There was no fever she was given cefazolin. She was eventually cleared for discharge to continue Keflex 500 mg every 8 hours. She was advice keep physically and cognitively active. She was transferred to a [facility]. FINAL DIAGNOSES: Syncope, no arrhythmia on telemetry Encephalopathy Alzheimer's Dementia with behavioral disturbance Urinary tract infection with Escherichia coli Anxiety disorder Hypertension Hyperlipidemia Hypothyroidism DISPOSITION: Patient was discharged to [facility]. DISCHARGE MEDICATIONS: Refer to Discharge Medication List. I have been assigned to dictate discharge summary on this account, and I was not involved in the patient's management. Josefina Garcia NP Aug 12, 2017 16:37
--- NOTE | 2017-09-21 01:11 | Physician Query ---
PLEASE COMPLETE THE DOCUMENT BEFORE SIGNING Dear WILLIS Lucio Date: 09/20/17 Nanotechnology Engineering Technician/CDS Name: Shabana Gustafson CCS Nanotechnology Engineering Technician / CDS Phone #[phone] Exercise your independent professional judgment when responding to query. Question asked do not imply a particular answer is desired/expected Clinical Documentation States: "Syncope" documented in: H & P (08/04/17) "Syncopal episode" Cardiology Progress Note: Dr. Ozuna (08/04/17)= Recurrent syncopal episodes. Hyperlipidemia. Hypothyroidism.No arrhythmia on telemetry. Echo EF 60%. Neurology Progress Note: (08/04/17)= " Ms. Erin Vicente is an 81-year- old, right-handed, lady, who does have a past history of hypothyroidism, hypertension, diabetes mellitus, and dementia, who was hospitalized for multiple episodes of loss of consciousness, thought to be syncopal episodes." Temperature 97.4, pulse is 70, and blood pressure 101/59. Please specify the cause: [] Orthostatic Hypotension [] Psychogenic [] Shock [] Dehydration [] Dialysis Disequilibrium Syndrome [] Heat [] Other: [] Unable to determine Dr. WILLIS DAY Date/Time MTDD
--- NOTE | 2017-09-27 09:53 | Physician Query ---
--------- THIS DOCUMENT IS A PERMANENT PART OF THE MEDICAL RECORD --------- PLEASE COMPLETE THE DOCUMENT BEFORE SIGNING Dear Dr. Celestin Date: 09/27/17 Gang Supervisor/CDS Name: Shabana Gustafson, CCS Exercise your independent professional judgment when responding to query. Question asked do not imply a particular answer is desired/expected Clinical Documentation States: "Syncope" documented in BRIEF HOSPITAL COURSE: Patient is an 81-year-old female, presented to ED due to multiple episodes of loss of consciousness. On evaluation at ED, blood work showed WBC 12.3, glucose 144, otherwise unremarkable. EKG was in normal sinus rhythm at the rate of 76 with no PVCs, no ectopy. Chest x-ray showed no acute disease.She was admitted for evaluation of multiple episodes of loss of consciousness, thought to be syncopal episodes. She underwent cardiac evaluation. There was no arrhythmia on telemetry. She was continued on Hyzaar 50/12 0.5 mg daily, Pravachol, Synthroid. Echocardiogram showed ejection fraction 60% with normal left ventricular size and function and wall motion. No evidence of left ventricular hypertrophy. No evidence of pericardial effusion. No aortic regurgitation. Mild mitral regurgitation. Carotid duplex revealed no significant plaque within the right and left extracranial carotid arteries. Urine culture came back positive for Escherichia coli. Please specify the cause of Syncope: [ ] Orthostatic Hypotension [ ] Psychogenic [ ] Shock [ ] Dehydration [ ] Dialysis Disequilibrium Syndrome [ ] Heat [ ] Other: [ ] Unable to determine Please also document in your Progress Notes and/or Discharge Summary and indicate if the condition was present on admission. Becky Celestin M.D. Date & Time [facility]
== END 2017-08-10 21:35 | DRG 690 ==
LOC: EDBD 17:14 → EMR 17:45 → 2E 18:23 → EDBEDREQ 18:47 → 4W 08-04 17:08 → 3E 08-07 17:23
DX: N39.0 Urinary tract infection, site not specified (principal); E86.0 Dehydration; F02.81 Dementia in other diseases classified elsewhere, unspecified severity, with behavioral disturbance; G30.9 Alzheimer's disease, unspecified; B96.20 Unspecified Escherichia coli [E. coli] as the cause of diseases classified elsewhere; I10 Essential (primary) hypertension; E78.5 Hyperlipidemia, unspecified; E03.9 Hypothyroidism, unspecified; F41.9 Anxiety disorder, unspecified; Z88.8 Allergy status to other drugs, medicaments and biological substances; E11.9 Type 2 diabetes mellitus without complications
CPT/HCPCS: 36415; 71045; 80053; 80061; 81003; 82306; 82550; 82553; 82607; 82746; 83036; 83880; 84165; 84443; 84484; 85025; 85651; 86592; 87086; 87181; 93005; 93306; 93880; 99285